=== PATIENT | male | born 1960 | race Caucasian/White ===

== ENCOUNTER 2018-11-13 13:06 | Inpatient (IN) | payer BC, OTHER ==
[~2018-11-13] VITALS: Ht 167.6 cm; Wt 100.9 kg
[2018-11-13] MEDS ORDERED: IV NORMAL SALINE 1000ML BAG 1,000 ML IV SCH (13:18)
[2018-11-13] MEDS ORDERED: ACETAMINOPHEN 500 MG TABLET PO ONE (13:30)
[2018-11-13] MEDS ORDERED: IPRATRPIUM/ALBUTEROL 0.5/2.5MG 3 ML NEBU. NEB ONE (13:30)
[2018-11-13] MEDS ORDERED: methylPREDNISolone SOD SUCC PF 125 MG/2 ML VIAL. IV ONE (13:30)
[2018-11-13 13:39] LABS: BASE EXCESS ABG 3 mmol/L (-3-3); CORRECTED PCO2 ABG 44 mmHg; CORRECTED PH ABG 7.42; CORRECTED PO2 ABG 114 mmHg; HCO3 ABG 27 mmol/L (21-28); PCO2 ABG 39 mmHg (35-46); PO2 ABG 98 mmHg (75-108); SAT O2 ABG 97 % (92-99)
[2018-11-13 13:41] LABS: FIO2 ABG 100% NRB
[2018-11-13 13:55] LABS: BASO # 0.1 x10^3/uL (0.0-0.2); BASO % 0 % (0-3); EOS % 0 % (0-3); HEMATOCRIT 41.2 % (39.0-53.0); HEMOGLOBIN 14.1 g/dL (13.0-17.5); LYMPH # 1.2 x10^3/uL (1.0-4.8); LYMPH % 7 % (24-48); MEAN CORPUSCULAR HEMOGLOBIN 33 pg (25-35); MEAN CORPUSCULAR HGB CONC 34 g/dL (31-37); MEAN CORPUSCULAR VOLUME 97 fL (79-100); MONO # 1.9 x10^3/uL (0.0-1.1); MONO % 10 % (0-9); NEUT # 15.9 x10^3uL (1.8-7.7); NEUT % 83 % (31-73); PLATELET COUNT 174 x10^3/uL (140-400); RED BLOOD COUNT 4.26 x10^6/uL (4.30-5.70); RED CELL DISTRIBUTION WIDTH 13.6 % (11.5-14.5); WHITE BLOOD COUNT 19.1 x10^3/uL (4.0-11.0)
--- NOTE | 2018-11-13 14:01 | RAD ---
Examination: PORTABLE CHEST 1V History: SOA, FEVER Comparison/Correlation: None Findings: Portable frontal view chest was obtained. Heart size is borderline and this may be technique related. Patchy infiltrate involving the left lung base is noted obscuring the left heart border. No definite pleural effusion. No pneumothorax. Pulmonary vasculature is within the upper limit of normal. Impression: Left basilar patchy infiltrate. Interval follow-up two-view chest x-ray exam to assess resolution is recommended. Electronically signed by: Celestine Collier MD (11/13/2018 1:59 PM) [facility]
[2018-11-13] MEDS ORDERED: VANCOMYCIN 1.25 GM in IV NORMAL SALINE 250ML 250 ML IV ONE (14:15)
[2018-11-13] MEDS ORDERED: cefTRIAXone IV Push 1 GM VIAL. IVP ONE (14:15)
[2018-11-13] MEDS ORDERED: VANCOMYCIN 2 GM in IV NORMAL SALINE 500ML BAG 500 ML IV ONE (14:30)
[2018-11-13 14:54] LABS: % BANDS 23 % (0-9); % LYMPHS 6 % (24-48); % MONOS 6 % (0-10); % SEGS 65 % (35-66); PLT ESTIMATE ADEQUATE (ADEQUATE)
--- NOTE | 2018-11-13 14:59 | PHYS DOC ---
Past Medical History Past Medical History: Hypertension Additional Past Surgical Histo: L ANKLE, PYLORIC VALVE Additional Information: PACK A DAY Alcohol Use: Occasionally Drug Use: None Adult General Chief Complaint Chief Complaint: SHORTNESS OF BREATH HPI HPI Patient is a 57 year old male who presents with complaining of shortness of breath and cough. Patient complaining of productive cough with yellow sputum for the last 3 days with shortness of breath that getting more constant and worse. Patient had fever since yesterday with nasal congestion, sore throat, headache and body ache. Patient had sick contacts at home. Patient was seen at his primary care physician office and had O2 sat of low 70s that improved with 2 L of oxygen to 90s and negative influenza test. Patient refused to come to the hospital by EMS and Dr. Acosta called ER and gave a report about the patient and needs for fast assessment and starting oxygen. Patient currently smoking one pack a day had history of COPD and CHF. Review of Systems Review of Systems Constitutional: Reports fever and chills Eyes: Denies change in visual acuity, redness, or eye pain [] HENT: Reports nasal congestion and sore throat Respiratory: Reports cough and shortness of breath Cardiovascular: No additional information not addressed in HPI [] GI: Denies abdominal pain, nausea, vomiting, bloody stools or diarrhea [] : Denies dysuria or hematuria [] Musculoskeletal: Denies back pain or joint pain [] Integument: Denies rash or skin lesions [] Neurologic: Denies headache, focal weakness or sensory changes [] Endocrine: Denies polyuria or polydipsia [] All other systems were reviewed and found to be within normal limits, except as documented in this note. Current Medications Current Medications Current Medications Medications (Trade) Dose Ordered Sig/Zack Start Time Stop Time Status Last Admin Dose Admin Acetaminophen (Tylenol) 1,000 mg 1X ONCE 11/13/18 13:30 11/13/18 13:31 DC 11/13/18 13:30 1,000 MG Albuterol/ Ipratropium (Duoneb) 3 ml 1X ONCE 11/13/18 13:30 11/13/18 13:31 DC 11/13/18 13:26 3 ML Methylprednisolone Sodium Succinate (SOLU-Medrol 125MG VIAL) 125 mg 1X ONCE 11/13/18 13:30 11/13/18 13:31 DC 11/13/18 13:27 125 MG Sodium Chloride 1,000 ml @ 1,000 mls/hr Q1H 11/13/18 13:18 11/13/18 14:17 DC 11/13/18 13:29 1,000 MLS/HR Allergies Allergies Allergies Coded Allergies Type Severity Reaction Last Updated Verified Penicillins Allergy Intermediate HIVES 11/13/18 Yes Physical Exam Physical Exam Constitutional: Well developed, well nourished, moderate distress, non-toxic appearance, temperature of 103. [] HENT: Normocephalic, atraumatic, oropharynx dry, no oral exudates, nose normal. [] Eyes: PERRLA, EOMI, conjunctiva normal, no discharge. [] Neck: Normal range of motion, no tenderness, supple, no stridor. [] Cardiovascular:Heart rate regular rhythm, no murmur [] Lungs & Thorax: Moderate respiratory distress with O2 sat of low 80s at arrival to ER, bilateral rhonchi and wheezing and rales, Abdomen: Bowel sounds normal, soft, no tenderness, no masses, no pulsatile masses. [] Skin: Warm, dry, no erythema, no rash. [] Back: No tenderness, no CVA tenderness. [] Extremities: No tenderness, no cyanosis, no clubbing, ROM intact, bilateral lower extremity 1+ edema. [] Neurologic: Alert and oriented X 3, normal motor function, normal sensory function, no focal deficits noted. [] Psychologic: Affect normal, judgement normal, mood normal. [] Current Patient Data Vital Signs Vital Signs Date Time Temp Pulse Resp B/P (MAP) Pulse Ox O2 Delivery O2 Flow Rate FiO2 11/13/18 13:30 68 24 120/60 (80) 99 Venturi Mask 15.0 11/13/18 13:12 103.0 103.0 Lab Values Laboratory Tests Test 11/13/18 13:20 11/13/18 13:25 White Blood Count 19.1 x10^3/uL (4.0-11.0) H Red Blood Count 4.26 x10^6/uL (4.30-5.70) L Hemoglobin 14.1 g/dL (13.0-17.5) Hematocrit 41.2 % (39.0-53.0) Mean Corpuscular Volume 97 fL (79-100) Mean Corpuscular Hemoglobin 33 pg (25-35) Mean Corpuscular Hemoglobin Concent 34 g/dL (31-37) Red Cell Distribution Width 13.6 % (11.5-14.5) Platelet Count 174 x10^3/uL (140-400) Neutrophils (%) (Auto) 83 % (31-73) H Lymphocytes (%) (Auto) 7 % (24-48) L Monocytes (%) (Auto) 10 % (0-9) H Eosinophils (%) (Auto) 0 % (0-3) Basophils (%) (Auto) 0 % (0-3) Neutrophils # (Auto) 15.9 x10^3uL (1.8-7.7) H Lymphocytes # (Auto) 1.2 x10^3/uL (1.0-4.8) Monocytes # (Auto) 1.9 x10^3/uL (0.0-1.1) H Eosinophils # (Auto) 0.0 x10^3/uL (0.0-0.7) Basophils # (Auto) 0.1 x10^3/uL (0.0-0.2) Segmented Neutrophils % 65 % (35-66) Band Neutrophils % 23 % (0-9) H Lymphocytes % 6 % (24-48) L Monocytes % 6 % (0-10) Platelet Estimate Adequate (ADEQUATE) Lactic Acid Level 1.8 mmol/L (0.4-2.0) O2 Saturation 97 % (92-99) Arterial Blood pH 7.46 (7.35-7.45) H Arterial Blood pH (Temp corrected) 7.42 Arterial Blood pCO2 at Patient Temp 39 mmHg (35-46) Arterial Blood pCO2 (Temp correct) 44 mmHg Arterial Blood pO2 at Patient Temp 98 mmHg (75-108) Arterial Blood pO2 (Temp corrected) 114 mmHg Arterial Blood HCO3 27 mmol/L (21-28) Arterial Blood Base Excess 3 mmol/L (-3-3) FiO2 100% nrb Laboratory Tests 11/13/18 13:20 EKG EKG EKG interpreted by me. EKG at 1328 showed normal sinus rhythm at rate of 67, normal AK and QT intervals, no acute ST and T-wave abnormalities. Radiology/Procedures Radiology/Procedures [facility] [address] [place] [address] IMAGING REPORT Signed PATIENT: MIRIAM BARTON ACCOUNT: [id number] : 1960 LOCATION: ER AGE: 57 SEX: M EXAM STATUS: REG ER ORD. PHYSICIAN: NEWTON HALE MD REASON: shortness of breath and fever PROCEDURE: PORTABLE CHEST 1V Examination: PORTABLE CHEST 1V History: SOA, FEVER Comparison/Correlation: None Findings: Portable frontal view chest was obtained. Heart size is borderline and this may be technique related. Patchy infiltrate involving the left lung base is noted obscuring the left heart border. No definite pleural effusion. No pneumothorax. Pulmonary vasculature is within the upper limit of normal. Impression: Left basilar patchy infiltrate. Interval follow-up two-view chest x-ray exam to assess resolution is recommended. Electronically signed by: Celestine Ramírez MD (11/13/2018 1:59 PM) [facility] DICTATED and SIGNED BY: CELESTINE RAMÍREZ MD DATE: 11/13/18 7977 Course & Med Decision Making Course & Med Decision Making Pertinent Labs and Imaging studies reviewed. (See chart for details) Evaluation of patient in ER showed 57-year-old male patient sent from primary care physician office because of fever and respiratory distress and hypoxia with refusing EMS transfer. Patient had acute respiratory distress with temperature of 120 and O2 sat of low 80s at arrival to ER. Patient treated with nonrebreather mental O2 sat to 97%. Patient treated with IV fluid, DuoNeb and Solu-Medrol. Blood culture and lactic acid was obtained and antibiotic was started. X-ray showed left lower lobe infiltration. Lactic acid was 1.8. White count was 19,000.Patient requiring admission for further evaluation and treatment. Discussed with who is in agreement with admission. Discussed findings and plan with patient and family, who acknowledge understanding and agreement. Dragon Disclaimer Dragon Disclaimer This electronic medical record was generated, in whole or in part, using a voice recognition dictation system. Departure Departure Impression: Primary Impression: Acute respiratory distress Additional Impressions: CAP (community acquired pneumonia) SIRS (systemic inflammatory response syndrome) COPD (chronic obstructive pulmonary disease) Hyponatremia Hypokalemia Hypochloremia Disposition: ADMITTED INPATIENT (at 1336) Admitting Physician: Edward Acosta (accepted admission at 1455) Condition: GUARDED Referrals: EDWARD ACOSTA MD (PCP) Critical Care Time Critical care time was 70 minutes exclusive of procedures. Problem Qualifiers Additional Impressions: CAP (community acquired pneumonia) Laterality: left Lung location: lower lobe of lung Qualified Codes: J18.1 - Lobar pneumonia, unspecified organism COPD (chronic obstructive pulmonary disease) COPD type: COPD with acute exacerbation Qualified Codes: J44.1 - Chronic obstructive pulmonary disease with (acute) exacerbation NEWTON HALE MD Nov 13, 2018 14:59
[2018-11-13] MEDS: IV NORMAL SALINE 1000ML BAG 1,000 ML IV SCH ×2 (15:15→20:59)
[2018-11-13 15:20] LABS: CALCIUM 8.2 mg/dL (8.5-10.1); GFR 76.7; POTASSIUM 3.3 mmol/L (3.5-5.1)
--- NOTE | 2018-11-13 15:25 | EKG ---
[facility] [address] [place] [address] Test Date: 2018-11-13 Test Time: 13:28:20 Pat Name: MIRIAM BARTON Department: Room: 646 1 Gender: M De Alcoholizer: : 1960 Requested By: NEWTON HALE Order Number: [id number] Reading MD: Basil Pitt MD Measurements Intervals [place] Rate: 67 P: 30 WA: 154 QRS: 34 QRSD: 94 T: 40 QT: 400 QTc: 426 Interpretive Statements SINUS RHYTHM Electronically Signed On 11-25-2018 9:59:14 CDT by Basil Pitt MD
[2018-11-13 15:27] LABS: ALBUMIN 3.2 g/dL (3.4-5.0); TOTAL PROTEIN 6.3 g/dL (6.4-8.2)
--- NOTE | 2018-11-13 16:30 | NUR ---
ER patient assigned bed per nursing asbestos cement sheet supervisor request, upon review of records for admission, admit order stated level of care for CV/ICU. This nurse spoke to Dr. Acosta to clarify patient placement prior to admission to unit [address] [place] [address]. Reviewed vital signs and ER notes with Dr. Acosta. Dr. Acosta ordered patient to be admitted to CVC level of care or ICU if condition worsens. Dr. Acosta accepted patient care as admitting doctor when patient was to be admitted to CVC and stated he had not been notified that patient condition had improved to a point where patient could be admitted to med/tele unit and did not want patient on med/tele floor at this time. ER asbestos cement sheet supervisor was notified and nursing asbestos cement sheet supervisor notified, orders updated and bed requested for CVC level of care.
[2018-11-13 19:10] VITALS: BP 112/57
[2018-11-13 19:18] LABS: INFLUENZA A PATIENT NEGATIVE (NEGATIVE); INFLUENZA B PATIENT NEGATIVE (NEGATIVE)
[2018-11-13] MEDS ORDERED: AZEL137S3 INH (20:10)
[2018-11-13] MEDS ORDERED: B12/1TAB3 PO (20:10)
[2018-11-13] MEDS ORDERED: MONT10TA9 PO (20:10)
[2018-11-13] MEDS ORDERED: ATEN50TA PO (20:10)
[2018-11-13] MEDS ORDERED: HYDR25TA10 PO (20:10)
[2018-11-13] MEDS ORDERED: POTA20TA4 PO (20:10)
[2018-11-13] MEDS ORDERED: PROAIR RESPICL90 MCG INH (20:10)
[2018-11-13] MEDS ORDERED: MAGN400T22 PO (20:10)
[2018-11-13] MEDS ORDERED: MULT-245 PO (20:10)
[2018-11-13] MEDS ORDERED: FLUT1AER2 INH (20:10)
[2018-11-13] MEDS ORDERED: AMLO1CAP10 PO (20:10)
[2018-11-13] MEDS ORDERED: DOXA4TAB3 PO (20:10)
[2018-11-13] MEDS ORDERED: FEXO180T81 PO (20:10)
[2018-11-13] MEDS ORDERED: MAGNESIUM SULFATE 2GM 50 ML IV ONE (21:00)
[2018-11-13] MEDS: methylPREDNISolone SOD SUCC PF 125 MG/2 ML VIAL. IV SCH (21:00)
[2018-11-13] MEDS ORDERED: NICOTINE 21MG PATCH. TD ONE (21:00)
[2018-11-13 23:16] VITALS: BP 114/58
[2018-11-14] VITALS (7 sets, daily range): BP systolic 125–151; BP diastolic 69–81
[2018-11-14 03:57] LABS: BASO % 0 % (0-3); EOS % 0 % (0-3); HEMATOCRIT 44.8 % (39.0-53.0); HEMOGLOBIN 15.1 g/dL (13.0-17.5); LYMPH # 0.9 x10^3/uL (1.0-4.8); LYMPH % 5 % (24-48); MEAN CORPUSCULAR HEMOGLOBIN 33 pg (25-35); MEAN CORPUSCULAR HGB CONC 34 g/dL (31-37); MEAN CORPUSCULAR VOLUME 98 fL (79-100); MONO # 0.5 x10^3/uL (0.0-1.1); MONO % 3 % (0-9); NEUT # 15.4 x10^3uL (1.8-7.7); NEUT % 92 % (31-73); PLATELET COUNT 155 x10^3/uL (140-400); RED BLOOD COUNT 4.58 x10^6/uL (4.30-5.70); RED CELL DISTRIBUTION WIDTH 13.5 % (11.5-14.5); WHITE BLOOD COUNT 16.9 x10^3/uL (4.0-11.0)
[2018-11-14] MEDS: IV NORMAL SALINE 1000ML BAG 1,000 ML IV SCH (04:00)
[2018-11-14 04:55] LABS: ALBUMIN 3.1 g/dL (3.4-5.0); ALBUMIN/GLOBULIN RATIO 0.7 (1.0-1.7); CALCIUM 8.3 mg/dL (8.5-10.1); CREATININE 0.9 mg/dL (0.7-1.3); GFR 86.7; POTASSIUM 3.7 mmol/L (3.5-5.1); TOTAL BILIRUBIN 0.5 mg/dL (0.2-1.0); TOTAL PROTEIN 7.3 g/dL (6.4-8.2)
[2018-11-14] MEDS: methylPREDNISolone SOD SUCC PF 125 MG/2 ML VIAL. IV SCH ×3 (05:37→21:24)
--- NOTE | 2018-11-14 08:41 | PDOC ---
Infectious Disease Note Vital Sign Vital Signs Vital Signs Date Time Temp Pulse Resp B/P (MAP) Pulse Ox O2 Delivery O2 Flow Rate FiO2 11/14/18 08:14 Nasal Cannula 5.0 11/14/18 07:31 96 11/14/18 06:27 97.6 60 19 125/69 (87) 97.6 Labs Lab Laboratory Tests Test 11/13/18 13:20 11/13/18 13:25 11/13/18 14:10 11/13/18 18:20 White Blood Count 19.1 x10^3/uL (4.0-11.0) Red Blood Count 4.26 x10^6/uL (4.30-5.70) Hemoglobin 14.1 g/dL (13.0-17.5) Hematocrit 41.2 % (39.0-53.0) Mean Corpuscular Volume 97 fL (79-100) Mean Corpuscular Hemoglobin 33 pg (25-35) Mean Corpuscular Hemoglobin Concent 34 g/dL (31-37) Red Cell Distribution Width 13.6 % (11.5-14.5) Platelet Count 174 x10^3/uL (140-400) Neutrophils (%) (Auto) 83 % (31-73) Lymphocytes (%) (Auto) 7 % (24-48) Monocytes (%) (Auto) 10 % (0-9) Eosinophils (%) (Auto) 0 % (0-3) Basophils (%) (Auto) 0 % (0-3) Neutrophils # (Auto) 15.9 x10^3uL (1.8-7.7) Lymphocytes # (Auto) 1.2 x10^3/uL (1.0-4.8) Monocytes # (Auto) 1.9 x10^3/uL (0.0-1.1) Eosinophils # (Auto) 0.0 x10^3/uL (0.0-0.7) Basophils # (Auto) 0.1 x10^3/uL (0.0-0.2) Segmented Neutrophils % 65 % (35-66) Band Neutrophils % 23 % (0-9) Lymphocytes % 6 % (24-48) Monocytes % 6 % (0-10) Platelet Estimate Adequate (ADEQUATE) Lactic Acid Level 1.8 mmol/L (0.4-2.0) O2 Saturation 97 % (92-99) Arterial Blood pH 7.46 (7.35-7.45) Arterial Blood pH (Temp corrected) 7.42 Arterial Blood pCO2 at Patient Temp 39 mmHg (35-46) Arterial Blood pCO2 (Temp correct) 44 mmHg Arterial Blood pO2 at Patient Temp 98 mmHg (75-108) Arterial Blood pO2 (Temp corrected) 114 mmHg Arterial Blood HCO3 27 mmol/L (21-28) Arterial Blood Base Excess 3 mmol/L (-3-3) FiO2 100% nrb Sodium Level 129 mmol/L (136-145) Potassium Level 3.3 mmol/L (3.5-5.1) Chloride Level 91 mmol/L (98-107) Carbon Dioxide Level 29 mmol/L (21-32) Anion Gap 9 (6-14) Blood Urea Nitrogen 11 mg/dL (8-26) Creatinine 1.0 mg/dL (0.7-1.3) Estimated GFR (Cockcroft-Gault) 76.7 BUN/Creatinine Ratio 11 (6-20) Glucose Level 150 mg/dL (70-99) Calcium Level 8.2 mg/dL (8.5-10.1) Total Bilirubin 1.0 mg/dL (0.2-1.0) Aspartate Amino Transf (AST/SGOT) 45 U/L (15-37) Alanine Aminotransferase (ALT/SGPT) 54 U/L (16-63) Alkaline Phosphatase 66 U/L (46-116) Creatine Kinase 246 U/L (39-308) Troponin I Quantitative < 0.017 ng/mL (0.000-0.055) SC-Hvt-I-Type Natriuretic Peptide 825 pg/mL (0-124) Total Protein 6.3 g/dL (6.4-8.2) Albumin 3.2 g/dL (3.4-5.0) Albumin/Globulin Ratio 1.0 (1.0-1.7) Influenza Type A Antigen Negative (NEGATIVE) Influenza Type B Antigen Negative (NEGATIVE) Test 11/13/18 19:30 11/14/18 03:15 Lactic Acid Level 1.3 mmol/L (0.4-2.0) Magnesium Level 1.6 mg/dL (1.8-2.4) 2.3 mg/dL (1.8-2.4) White Blood Count 16.9 x10^3/uL (4.0-11.0) Red Blood Count 4.58 x10^6/uL (4.30-5.70) Hemoglobin 15.1 g/dL (13.0-17.5) Hematocrit 44.8 % (39.0-53.0) Mean Corpuscular Volume 98 fL (79-100) Mean Corpuscular Hemoglobin 33 pg (25-35) Mean Corpuscular Hemoglobin Concent 34 g/dL (31-37) Red Cell Distribution Width 13.5 % (11.5-14.5) Platelet Count 155 x10^3/uL (140-400) Neutrophils (%) (Auto) 92 % (31-73) Lymphocytes (%) (Auto) 5 % (24-48) Monocytes (%) (Auto) 3 % (0-9) Eosinophils (%) (Auto) 0 % (0-3) Basophils (%) (Auto) 0 % (0-3) Neutrophils # (Auto) 15.4 x10^3uL (1.8-7.7) Lymphocytes # (Auto) 0.9 x10^3/uL (1.0-4.8) Monocytes # (Auto) 0.5 x10^3/uL (0.0-1.1) Eosinophils # (Auto) 0.0 x10^3/uL (0.0-0.7) Basophils # (Auto) 0.0 x10^3/uL (0.0-0.2) Sodium Level 135 mmol/L (136-145) Potassium Level 3.7 mmol/L (3.5-5.1) Chloride Level 98 mmol/L (98-107) Carbon Dioxide Level 28 mmol/L (21-32) Anion Gap 9 (6-14) Blood Urea Nitrogen 13 mg/dL (8-26) Creatinine 0.9 mg/dL (0.7-1.3) Estimated GFR (Cockcroft-Gault) 86.7 BUN/Creatinine Ratio 14 (6-20) Glucose Level 200 mg/dL (70-99) Calcium Level 8.3 mg/dL (8.5-10.1) Total Bilirubin 0.5 mg/dL (0.2-1.0) Aspartate Amino Transf (AST/SGOT) 39 U/L (15-37) Alanine Aminotransferase (ALT/SGPT) 52 U/L (16-63) Alkaline Phosphatase 71 U/L (46-116) Total Protein 7.3 g/dL (6.4-8.2) Albumin 3.1 g/dL (3.4-5.0) Albumin/Globulin Ratio 0.7 (1.0-1.7) Objective Assessment Fever Leukocytosis Pneumonia COPD HTN Obesity Smoking Plan Plan of Care Rocephine and azithro supportive care adv to quit smoking adv to lose wt KAIA MANCILLA MD Nov 14, 2018 08:41
[2018-11-14] MEDS: AZITHROMYCIN 250 MG TABLET. PO SCH (08:49)
[2018-11-14] MEDS: NICOTINE 21MG PATCH. TD SCH (08:51)
[2018-11-14] MEDS ORDERED: IPRATRPIUM/ALBUTEROL 0.5/2.5MG 3 ML NEBU. NEB SCH (09:00)
--- NOTE | 2018-11-14 11:15 | PDOC ---
Provider Note Provider Note [id number] acute resp fail pneumonia ae copd see orders HERMES NICHOLS MD Nov 14, 2018 11:15
--- NOTE | 2018-11-14 11:38 | PDOC ---
Provider Note Provider Note Patient seen. History and Physical dictated. See dictation# [id number] EDWARD OATES MD Nov 14, 2018 11:38
[2018-11-14] MEDS: PANTOPRAZOLE 40 MG TABLET.DR. PO SCH (11:41)
[2018-11-14] MEDS: ENOXAPARIN 40 MG/0.4 ML SYRINGE. SQ SCH (11:42)
--- NOTE | 2018-11-14 11:55 | CONS ---
DATE OF CONSULTATION: 11/14/2018 REASON FOR CONSULTATION: I was asked to see this 57-year-old gentleman for acute respiratory failure. HISTORY OF PRESENT ILLNESS: He has history of [id number] smoking, continues to smoke about 1 pack per day. He has had increased shortness of breath, cough with yellow sputum production, fever, chills for the past few days. His oxygen saturation at his primary physician's office was in 70s. He was sent to the Emergency Room for further evaluation. He was placed on oxygen. He also has had wheezing. Denies gastroesophageal reflux symptoms. PAST MEDICAL HISTORY: COPD, hypertension. ALLERGIES: PENICILLINS. MEDICATIONS: Currently, he is on Rocephin, azithromycin, Solu-Medrol 80 mg IV q.8h., DuoNeb, nicotine patch. SOCIAL HISTORY: History of [id number] smoking, continues to smoke 1 pack per day. FAMILY HISTORY: There is no history of lung disease. REVIEW OF SYSTEMS: As mentioned as above. He snores and has excessive daytime sleepiness. He has not had a sleep study, also it was recommended. Other systems otherwise negative. PHYSICAL EXAMINATION: GENERAL: An obese gentleman. VITAL SIGNS: His O2 saturation on 5 liters of oxygen is 95%, respiratory rate 20, heart rate 86, blood pressure 145/75, temperature 97.6. HEENT: Normocephalic, atraumatic. Pupils equal, round, reactive to light. Throat: There is shallow oropharynx, poor dentition. Nose is clear. NECK: There is no lymphadenopathy or thyromegaly. CARDIOVASCULAR: Regular rate and rhythm. PMI is nondisplaced. CHEST: Inspection is normal. LUNGS: There is bilateral end expiratory wheezing, left basilar crackles, dullness at the left base. ABDOMEN: Soft and obese. Bowel sounds are good. There is no mass. EXTREMITIES: There is edema. LYMPHATICS: There is no lymphadenopathy. SKIN: Chronic changes. NEUROLOGIC: Alert and oriented x 3. LABORATORY DATA: I reviewed the following lab data: Chest x-ray shows cardiomegaly, increased vascular marking, left lower lobe infiltrate. WBC 16.9, hemoglobin 15.1, platelets 155. Influenza A and B negative. ABG: pH 7.42, pCO2 39, pO2 44. Sodium 135, potassium 3.7, chloride 98, CO2 28, glucose 200, BUN 13, creatinine 0.9. Troponin less than 0.017. BNP 825. Lactic acid 1.3. IMPRESSION: 1. Acute respiratory failure secondary to pneumonia, acute exacerbation of chronic obstructive pulmonary disease, cannot rule out congestive heart failure versus others. 2. Abnormal chest x-ray. 3. Pneumonia. 4. Acute exacerbation of chronic obstructive pulmonary disease. 5. Obesity, snoring and excessive daytime sleepiness, probable obstructive sleep apnea-hypopnea syndrome. 6. Hypertension. 7. Tobacco habituation. PLAN AND RECOMMENDATIONS: 1. I had a long discussion with him regarding the smoking cessation. I have advised him to stop smoking forever. 2. Continue steroids. 3. Continue Rocephin and azithromycin. 4. I will order echocardiogram. His BNP is elevated and he has lower extremity edema. 5. Titrate FiO2 to keep O2 saturation 92%. 6. Bronchodilator. 7. Start Lovenox for DVT prophylaxis. 8. Start Protonix for stress ulcer prophylaxis. 9. The findings and recommendations were discussed with the patient and RN. I have answered all of the patient's questions. He understood and agreed to proceed with the plan. I have answered all of his questions. 10. I have discussed obstructive sleep apnea-hypopnea syndrome, the importance of diagnosis and treatment, if untreated increased cardiovascular and FAMILY RESOURCE MANAGEMENT SPECIALIST morbidity or mortality. I do recommend a sleep study as an outpatient 11. A 6-minute walk at the time of discharge. Thank you very much for allowing me to participate in care of this very nice gentleman. HERMES NICHOLS M.D. : PREMA/laz JOB#: [id number] / [id number]
[2018-11-14] MEDS: IPRATRPIUM/ALBUTEROL 0.5/2.5MG 3 ML NEBU. NEB SCH ×3 (12:00→19:54)
--- NOTE | 2018-11-14 12:09 | HP ---
ADMIT DATE: 11/14/2018 HISTORY OF PRESENT ILLNESS: This 57-year-old male who has a history of COPD and chronic smoking, started having chills, fatigue, fever, productive cough and purulent sputum and wheezing for the last 3 days. In the office, the patient was noted to have temperature of 102.5 degree Fahrenheit. O2 sats were 67% on room air and then increased to 79% on recheck. The patient was then sent to the Emergency Room, was noted to have left-sided pneumonia with acute respiratory failure and was admitted for further evaluation and management. REVIEW OF SYSTEMS: Systems review as noted earlier. The patient has body aches, fatigue and dyspnea. Denies any chest pains or palpitations. Feels tired. No complaints of dysuria, diarrhea or constipation. Other systems reviewed and are negative. PAST MEDICAL HISTORY: The patient is known to have history of hypertension, allergic rhinitis, COPD and sleep apnea. PAST SURGICAL HISTORY: The patient had open reduction and internal fixation of the right ankle because of right ankle fracture in 2010 and history of tonsillectomy. ALLERGIES: THE PATIENT IS ALLERGIC TO PENICILLIN. MEDICATIONS: Reviewed and reconciled. FAMILY HISTORY: Father had hypertension and borderline diabetes. SOCIAL HISTORY: The patient is a heavy tobacco smoker, used to drink, has history of 6-pack beer consumption daily. No history of drug abuse. PHYSICAL EXAMINATION: VITAL SIGNS: Temperature 97.6, pulse 86 per minute and blood pressure 145/75 mmHg. O2 sats are 95% on oxygen by nasal cannula 5 liters per minute. Initially, the patient was treated with BiPAP. Temperature in the Emergency Room was 103 degree Fahrenheit. GENERAL: The patient is alert, oriented x 3 and in less distress today. EYES: Pupils reacting to light. Conjunctivae pale. Sclerae muddy. HENT: Unremarkable, except for congested throat. NECK: Supple. JVP normal. No thyromegaly. Trachea midline. LUNGS: Bilateral wheezing, but increased air entry compared to yesterday. CARDIOVASCULAR SYSTEM: S1, S2 regular. ABDOMEN: Soft, nontender. No guarding, no rigidity. Bowel sounds present. EXTREMITIES: No edema. CENTRAL NERVOUS SYSTEM: Alert and oriented. LABORATORY DATA: Influenza screen is negative. WBC count was 19.1 yesterday, 16.9 today; hemoglobin 14.1. Sodium was 129 yesterday, 135 today. Potassium 3.3 yesterday; potassium is 3.7 today. Glucose 150. Lactic acid 1.8. AST 45, ALT 54. BNP was 825. Albumin 3.2. IMPRESSION: 1. Acute hypoxic respiratory failure. 2. Pneumonia. 3. Acute exacerbation of chronic obstructive pulmonary disease. 4. Hypertension. 5. Allergic rhinitis. PLAN: The patient is strongly advised to stop smoking, started on nicotine patch. Consult Dr. Copeland for Pulmonary evaluation and management. Consult Dr. Jason Martinez for Infectious Disease evaluation and management. The patient has been started on IV Rocephin and Zithromax, IV steroids, bronchodilators and oxygen. For details, please review the orders. EDWARD OATES MD DR: ARTHUR/laz JOB#: [id number] / [id number]
--- NOTE | 2018-11-14 13:21 | NUR ---
SS following for discharge planning. SS reviewed pt chart. Pt is from home with spouse and is currently requiring oxygen. No discharge needs noted at this time. SS will continue to follow for discharge planning.
--- NOTE | 2018-11-14 13:58 | CARD ---
MR#: [id number] Date of Study: 11/14/2018 Ordering Physician: HERMES NICHOLS, Referring Physician: EDWARD OATES Tech: Vicki Lopez SPARKLE APPROVED REPORT EXAM: Two-dimensional and M-mode echocardiogram with Doppler and color Doppler. Other Information Quality : Technically LimitedHR: 80bpm Rhythm : NSRTechnically limited study due to body habitus and smoking. INDICATION Shortness of breath 2D DIMENSIONS RVDd3.3 (2.9-3.5cm)Left Atrium(2D)4.3 (1.6-4.0cm) IVSd1.4 (0.7-1.1cm)Aortic Root(2D)3.2 (2.0-3.7cm) LVDd5.1 (3.9-5.9cm)LVOT Diameter2.3 (1.8-2.4cm) PWd1.2 (0.7-1.1cm)LVDs3.6 (2.5-4.0cm) FS (%) 29.5 %SV68.1 ml LVEF(%)56.2 (>50%) M-Mode DIMENSIONS Left Atrium(MM)4.07 (2.5-4.0cm)Aortic Root3.43 (2.2-3.7cm) Aortic Valve AoV Peak Robb.280.8cm/sAoV VTI55.0cm AO Peak GR.31.5mmHgLVOT Peak Robb.106.4cm/s AO Mean GR.18mmHgAVA (VMAX)1.51cm2 JUANITA (VTI)1.70it8PF P 1/2 Musn375ny Mitral Valve MV E Inlnuldm925.5cm/sMV E Peak Gr.6mmHg MV DECEL [id number] A Rpqnotel816.8cm/s MV E Mean Gr.3mmHgE/A Ratio1.4 MV A Tzcdtyzm791tj Pulmonary Valve PV Peak Biafjfxj956.3cm/s Tricuspid Valve TR P. Iorfmxqt644tj/sRAP GVBFPNLU1ldSz TR Peak Gr.02vsRhEKOF31rbId LEFT VENTRICLE The left ventricle is normal size. There is mild concentric left ventricular hypertrophy. The left ve ntricular systolic function is normal. The Ejection Fraction is 65%. There is normal LV segmental wal l motion. Transmitral Doppler flow pattern is Grade II-pseudonormal filling dynamics. RIGHT VENTRICLE The right ventricle is normal size. There is normal right ventricular wall thickness. The right ventr icular systolic function is normal. ATRIA The left atrium is mildly dilated. The right atrium is mildly dilated. The interatrial septum is inta ct with no evidence for an atrial septal defect or patent foramen ovale as noted on 2-D or Doppler im aging. AORTIC VALVE The aortic valve is normal in structure and function. The aortic valve is trileaflet. Doppler and Col or Flow revealed moderate aortic regurgitation. There are increased velocties across the aortic valve but visually is opens well. MITRAL VALVE The mitral valve is normal in structure and function. There is no evidence of mitral valve prolapse. There is no mitral valve stenosis. Doppler and Color-flow revealed trace mitral regurgitation. TRICUSPID VALVE The tricuspid valve is normal in structure and function. Doppler and Color Flow revealed mild tricusp id regurgitation. There is severe pulmonary hypertension. The PA pressure was estimated at 79 mmHg. T here is no tricuspid valve prolapse or vegetation. There is no tricuspid valve stenosis. PULMONIC VALVE The pulmonic valve is not well visualized. GREAT VESSELS The aortic root is normal in size. The ascending aorta is normal in size. The IVC is dilated and gabo apses >50% with inspiration. PERICARDIAL EFFUSION There is no evidence of significant pericardial effusion. Critical Notification Critical Value: No <Conclusion> The left ventricular systolic function is normal. The Ejection Fraction is 65%. There is normal LV segmental wall motion. The left atrium is mildly dilated. Moderate aortic regurgitation. Trace mitral regurgitation. Mild tricuspid regurgitation. There is severe pulmonary hypertension. The PA pressure was estimated at 79 mmHg. There is no evidence of significant pericardial effusion. Signed by : Danilo Paula, Electronically Approved : 11/14/2018 13:58:01
[2018-11-14] MEDS: POTASSIUM CHLORIDE 20 MEQ TABLET.ER. PO SCH (16:20)
[2018-11-14] MEDS: cefTRIAXone IV Push 1 GM VIAL. IVP SCH (16:20)
[2018-11-14] MEDS: BUDESONIDE 0.5 MG/2 ML NEBU. NEB SCH (19:54)
[2018-11-14] MEDS: LACTOBACILLUS RHAMNOSUS GG 1 CAPSULE. PO SCH (21:13)
[2018-11-14] MEDS: MAGNESIUM OXIDE 400 MG TABLET PO SCH (21:13)
[2018-11-14] MEDS: MONTELUKAST SODIUM 10 MG TABLET. PO SCH (21:13)
[2018-11-14] MEDS: ATENOLOL 50 MG TABLET. PO SCH (21:14)
[2018-11-14] MEDS: LISINOPRIL 20 MG TABLET PO SCH (21:14)
--- NOTE | 2018-11-15 01:23 | CONS ---
DATE OF CONSULTATION: 11/14/2018 REQUESTING PHYSICIAN: Robin Acosta M.D. REASON FOR CONSULTATION: Fever and pneumonia. HISTORY OF PRESENT ILLNESS: This is a 57-year-old gentleman with a history of hypertension and obesity, who presented with about 3-4 days history of cough, sore throat, shortness of breath, not feeling well, fever and the patient states his stepson and the both had similar symptoms before and then, he got it. Denies any nausea or vomiting. Denies any diarrhea. Denies any chest pain, abdominal pain, urinary symptoms, bowel symptoms or headaches. PAST MEDICAL HISTORY: Positive for hypertension, COPD and obesity. The patient has had ankle fracture surgery done in the past. Does have hearing problem. SOCIAL HISTORY: Positive for smoking. Negative for alcohol use or drug use. ALLERGIES: Listed as allergic to PENICILLIN. He states he had problem with amoxicillin was growing up, although admits to have taken Augmentin without any problem. REVIEW OF SYSTEMS: As per HPI, all other systems reviewed are negative. CURRENT MEDICATIONS: Reviewed. PHYSICAL EXAMINATION: GENERAL: Alert, oriented gentleman, not in distress. VITAL SIGNS: Stable. The patient did have a T-max of 103. HEENT: NAD. NECK: Supple. No JVP. No lymphadenopathy. LUNGS: Clear. HEART: S1 and S2 regular. ABDOMEN: Benign. EXTREMITIES: No edema or cyanosis. SKIN: Unremarkable. NEUROLOGICAL: The patient is neurologically intact. LABORATORY DATA: White count is 16,000 down from 19,000. BUN and creatinine is normal. Lactic acid was normal. Liver functions are normal. His influenza screen was negative. RADIOLOGICAL DATA: Chest x-ray showed left basilar infiltrate. IMPRESSION: 1. Fever. 2. Leukocytosis. 3. Community-acquired pneumonia. 4. Hypertension. 5. Obesity. 6. Tobaccoism. RECOMMENDATIONS: Recommend Rocephin and azithromycin as I started. Follow cultures. Supportive care, steroids strongly advised to quit smoking as well as to lose weight. Thank you very much, Dr. Acosta, for giving me the opportunity to participate in this patient's care. KAIA MANCILLA MD DR: J CARLOS/laz JOB#: [id number] / [id number]
[2018-11-15 03:29] VITALS: BP 124/59
[2018-11-15] MEDS: methylPREDNISolone SOD SUCC PF 125 MG/2 ML VIAL. IV SCH (06:01)
[2018-11-15 07:00] VITALS: BP 144/72
--- NOTE | 2018-11-15 08:01 | PDOC ---
PULMONARY PROGRESS NOTES Subjective has sob, cough, on 02, no pain Vitals Vital Signs Date Time Temp Pulse Resp B/P (MAP) Pulse Ox O2 Delivery O2 Flow Rate FiO2 11/15/18 03:29 62 20 124/59 (80) 93 Nasal Cannula 4.0 11/14/18 22:25 98.0 98.0 ROS: No Nausea, No Chest Pain General: Alert HEENT: Other (nc at perrl shallow oropharynx. ) Lungs: Wheezing, Crackles Cardiovascular: S1, S2 Abdomen: Soft, Non-tender Neuro Exam: Alert Extremities: Other (+1 edema) Labs Laboratory Tests Test 11/13/18 13:20 11/13/18 13:25 11/13/18 14:10 11/13/18 18:20 White Blood Count 19.1 x10^3/uL (4.0-11.0) Red Blood Count 4.26 x10^6/uL (4.30-5.70) Hemoglobin 14.1 g/dL (13.0-17.5) Hematocrit 41.2 % (39.0-53.0) Mean Corpuscular Volume 97 fL (79-100) Mean Corpuscular Hemoglobin 33 pg (25-35) Mean Corpuscular Hemoglobin Concent 34 g/dL (31-37) Red Cell Distribution Width 13.6 % (11.5-14.5) Platelet Count 174 x10^3/uL (140-400) Neutrophils (%) (Auto) 83 % (31-73) Lymphocytes (%) (Auto) 7 % (24-48) Monocytes (%) (Auto) 10 % (0-9) Eosinophils (%) (Auto) 0 % (0-3) Basophils (%) (Auto) 0 % (0-3) Neutrophils # (Auto) 15.9 x10^3uL (1.8-7.7) Lymphocytes # (Auto) 1.2 x10^3/uL (1.0-4.8) Monocytes # (Auto) 1.9 x10^3/uL (0.0-1.1) Eosinophils # (Auto) 0.0 x10^3/uL (0.0-0.7) Basophils # (Auto) 0.1 x10^3/uL (0.0-0.2) Segmented Neutrophils % 65 % (35-66) Band Neutrophils % 23 % (0-9) Lymphocytes % 6 % (24-48) Monocytes % 6 % (0-10) Platelet Estimate Adequate (ADEQUATE) Lactic Acid Level 1.8 mmol/L (0.4-2.0) O2 Saturation 97 % (92-99) Arterial Blood pH 7.46 (7.35-7.45) Arterial Blood pH (Temp corrected) 7.42 Arterial Blood pCO2 at Patient Temp 39 mmHg (35-46) Arterial Blood pCO2 (Temp correct) 44 mmHg Arterial Blood pO2 at Patient Temp 98 mmHg (75-108) Arterial Blood pO2 (Temp corrected) 114 mmHg Arterial Blood HCO3 27 mmol/L (21-28) Arterial Blood Base Excess 3 mmol/L (-3-3) FiO2 100% nrb Sodium Level 129 mmol/L (136-145) Potassium Level 3.3 mmol/L (3.5-5.1) Chloride Level 91 mmol/L (98-107) Carbon Dioxide Level 29 mmol/L (21-32) Anion Gap 9 (6-14) Blood Urea Nitrogen 11 mg/dL (8-26) Creatinine 1.0 mg/dL (0.7-1.3) Estimated GFR (Cockcroft-Gault) 76.7 BUN/Creatinine Ratio 11 (6-20) Glucose Level 150 mg/dL (70-99) Calcium Level 8.2 mg/dL (8.5-10.1) Total Bilirubin 1.0 mg/dL (0.2-1.0) Aspartate Amino Transf (AST/SGOT) 45 U/L (15-37) Alanine Aminotransferase (ALT/SGPT) 54 U/L (16-63) Alkaline Phosphatase 66 U/L (46-116) Creatine Kinase 246 U/L (39-308) Troponin I Quantitative < 0.017 ng/mL (0.000-0.055) RZ-Gzw-N-Type Natriuretic Peptide 825 pg/mL (0-124) Total Protein 6.3 g/dL (6.4-8.2) Albumin 3.2 g/dL (3.4-5.0) Albumin/Globulin Ratio 1.0 (1.0-1.7) Influenza Type A Antigen Negative (NEGATIVE) Influenza Type B Antigen Negative (NEGATIVE) Test 11/13/18 19:30 11/14/18 03:15 Lactic Acid Level 1.3 mmol/L (0.4-2.0) Magnesium Level 1.6 mg/dL (1.8-2.4) 2.3 mg/dL (1.8-2.4) White Blood Count 16.9 x10^3/uL (4.0-11.0) Red Blood Count 4.58 x10^6/uL (4.30-5.70) Hemoglobin 15.1 g/dL (13.0-17.5) Hematocrit 44.8 % (39.0-53.0) Mean Corpuscular Volume 98 fL (79-100) Mean Corpuscular Hemoglobin 33 pg (25-35) Mean Corpuscular Hemoglobin Concent 34 g/dL (31-37) Red Cell Distribution Width 13.5 % (11.5-14.5) Platelet Count 155 x10^3/uL (140-400) Neutrophils (%) (Auto) 92 % (31-73) Lymphocytes (%) (Auto) 5 % (24-48) Monocytes (%) (Auto) 3 % (0-9) Eosinophils (%) (Auto) 0 % (0-3) Basophils (%) (Auto) 0 % (0-3) Neutrophils # (Auto) 15.4 x10^3uL (1.8-7.7) Lymphocytes # (Auto) 0.9 x10^3/uL (1.0-4.8) Monocytes # (Auto) 0.5 x10^3/uL (0.0-1.1) Eosinophils # (Auto) 0.0 x10^3/uL (0.0-0.7) Basophils # (Auto) 0.0 x10^3/uL (0.0-0.2) Sodium Level 135 mmol/L (136-145) Potassium Level 3.7 mmol/L (3.5-5.1) Chloride Level 98 mmol/L (98-107) Carbon Dioxide Level 28 mmol/L (21-32) Anion Gap 9 (6-14) Blood Urea Nitrogen 13 mg/dL (8-26) Creatinine 0.9 mg/dL (0.7-1.3) Estimated GFR (Cockcroft-Gault) 86.7 BUN/Creatinine Ratio 14 (6-20) Glucose Level 200 mg/dL (70-99) Calcium Level 8.3 mg/dL (8.5-10.1) Total Bilirubin 0.5 mg/dL (0.2-1.0) Aspartate Amino Transf (AST/SGOT) 39 U/L (15-37) Alanine Aminotransferase (ALT/SGPT) 52 U/L (16-63) Alkaline Phosphatase 71 U/L (46-116) Total Protein 7.3 g/dL (6.4-8.2) Albumin 3.1 g/dL (3.4-5.0) Albumin/Globulin Ratio 0.7 (1.0-1.7) Medications Active Scripts Medications Dose Route/Sig Max Daily Dose Days Date Category Folbic Rf Tablet (B12/Levomefolate Calcium/B-6) 1 Each Tablet 1 Each PO DAILY 11/13/18 Reported Multi Vitamin Daily (Multivitamin) 1 Each Tablet 1 Each PO DAILY 11/13/18 Reported Flakita Allergy (Fexofenadine Hcl) 180 Mg Tablet 180 Mg PO DAILY 11/13/18 Reported Proair Respiclick (Albuterol Sulfate) 90 Mcg Aer.pow.ba 90 Mcg INH Q6HRS 11/13/18 Reported Azelastine Hcl 137 Mcg/0.137 Ml Salley.pump 137 Mcg INH BID 11/13/18 Reported Klor-Con M20 (Potassium Chloride) 20 Meq Tab.er.prt 20 Mg PO TID 11/13/18 Reported Mag-Oxide (Magnesium Oxide) 400 Mg Tablet 400 Mg PO TID 11/13/18 Reported Breo Ellipta 100-25 Mcg INH (Fluticasone/Vilanterol) 1 Each Blst.w.dev 1 Inh INH DAILY 11/13/18 Reported Atenolol 50 Mg Tablet 50 Mg PO BID 11/13/18 Reported Breo Ellipta 100-25 Mcg INH (Fluticasone/Vilanterol) 1 Each Blst.w.dev 1 Puff INH DAILY 11/13/18 Reported Doxazosin Mesylate 4 Mg Tablet 4 Mg PO QHS 11/13/18 Reported Hydrochlorothiazide 25 Mg Tablet 25 Mg PO DAILY 11/13/18 Reported Montelukast Sodium Tablet (Montelukast Sodium) 10 Mg Tablet 10 Mg PO QHS 11/13/18 Reported Amlodipine-Benazepril 5-20 Mg (Amlodipine Besylate/Benazepril) 1 Each Capsule 5-20 Mg PO BID 11/13/18 Reported Comments The left ventricular systolic function is normal. The Ejection Fraction is 65%. There is normal LV segmental wall motion. The left atrium is mildly dilated. Moderate aortic regurgitation. Trace mitral regurgitation. Mild tricuspid regurgitation. There is severe pulmonary hypertension. The PA pressure was estimated at 79 mmHg. There is no evidence of significant pericardial effusion. Impression . IMPRESSION: 1. Acute respiratory failure secondary to pneumonia, acute exacerbation of chronic obstructive pulmonary disease, acute diastolic congestive heart failure versus others. 2. Abnormal chest x-ray. 3. Pneumonia. 4. Acute exacerbation of chronic obstructive pulmonary disease. 5. Obesity, snoring and excessive daytime sleepiness, probable obstructive sleep apnea-hypopnea syndrome. 6. Hypertension. 7. Tobacco habituation. 8. secondary pulm htn, due to AI, copd, prob akil, diastolic chf vs others Plan . PLAN AND RECOMMENDATIONS: 1. I had a long discussion with him regarding the smoking cessation. I have advised him to stop smoking forever. 2. Continue steroids, no dose change, still has cough, wheezing. 3. Continue Rocephin and azithromycin. 4. echocardiogram reviewed 5. Titrate FiO2 to keep O2 saturation 92%. 6. Bronchodilator. 7. Lovenox for DVT prophylaxis. 8. Protonix for stress ulcer prophylaxis. 9. lose wt 10. I have discussed obstructive sleep apnea-hypopnea syndrome, the importance of diagnosis and treatment, if untreated increased cardiovascular and SCIENTIFIC HELPER morbidity or mortality. I do recommend a sleep study as an outpatient 11. A 6-minute walk at the time of discharge. 12. ? cardiology consult, has moderate AI 13. has pulm htn, will do cta of chest. le doppler discussed HERMES Odonnell pt, MD Nov 15, 2018 08:01
[2018-11-15] MEDS: BUDESONIDE 0.5 MG/2 ML NEBU. NEB SCH ×2 (08:10→20:38)
[2018-11-15] MEDS: IPRATRPIUM/ALBUTEROL 0.5/2.5MG 3 ML NEBU. NEB SCH ×4 (08:10→20:38)
[2018-11-15] MEDS ORDERED: IOHEXOL 350 MG/ML 100 ML VIAL. IV ONE (09:00)
[2018-11-15] MEDS ORDERED: VILANTEROL INH SCH (09:00)
[2018-11-15] MEDS ORDERED: FLUTICASONE INH SCH (09:00)
[2018-11-15] MEDS ORDERED: CONTRAST GIVEN. MC PRN (09:00)
[2018-11-15] MEDS: VITAMIN B12,B9,B6 COMPLEX 1 TABLET. PO SCH (10:07)
[2018-11-15] MEDS: LACTOBACILLUS RHAMNOSUS GG 1 CAPSULE. PO SCH ×2 (10:07→20:36)
[2018-11-15] MEDS: PANTOPRAZOLE 40 MG TABLET.DR. PO SCH (10:08)
[2018-11-15] MEDS: AZITHROMYCIN 250 MG TABLET. PO SCH (10:08)
[2018-11-15] MEDS: MAGNESIUM OXIDE 400 MG TABLET PO SCH ×3 (10:08→20:37)
[2018-11-15] MEDS: POTASSIUM CHLORIDE 20 MEQ TABLET.ER. PO SCH ×3 (10:08→17:15)
[2018-11-15] MEDS: CETIRIZINE HCL 10 MG TABLET. PO SCH (10:08)
[2018-11-15] MEDS: MULTIVITAMIN with MINERAL TABLET. PO SCH (10:08)
[2018-11-15] MEDS: amLODIPine BESYLATE 5 MG TABLET PO SCH ×2 (10:08→20:37)
[2018-11-15] MEDS: hydroCHLOROthiazide 25 MG TABLET PO SCH (10:08)
[2018-11-15] MEDS: LISINOPRIL 20 MG TABLET PO SCH ×2 (10:09→20:37)
[2018-11-15] MEDS: ATENOLOL 50 MG TABLET. PO SCH ×2 (10:09→20:36)
[2018-11-15] MEDS: NICOTINE 21MG PATCH. TD SCH (10:10)
--- NOTE | 2018-11-15 10:24 | PDOC2 ---
JULIA GALE DIGITAL PRODUCTION OPERATOR 11/15/18 1024: CARDIAC CONSULT DATE OF CONSULT Date of Consult DATE: 11/15/18 TIME: 10:13 REASON FOR CONSULT Reason for Consult: abnormal echo REFERRING PHYSICIAN Referring Physician: Dave SOURCE Source: Chart review, Patient HISTORY OF PRESENT ILLNESS HISTORY OF PRESENT ILLNESS This is a pleasant 57 yo male admitted for complains of SOA and chills. Reports that he started having chills Sunday then progressively SOa on Sunday. Upon admission he was noted with fever and pneumonia. He has COPD with chronic tobacco use. No prior hx of CAD or arrhythmias. He has been experiencing some fatigu but this does not affect his functioning especially at work which requires heavy exertion and lifting. No exertional CP or LIM prior to his pneumonia. No changes in his ADLs. No exertional leg pain except his lef ankle where he had his ankle surgery and no symptoms of jaw tightness, nausea, vomiting. Denies any palpitations or frequent dizziness. He does have positional dizziness brief but nothing significant. It has been a while since his last stress test. PAST MEDICAL HISTORY Cardiovascular: HTN Pulmonary: COPD CENTRAL NERVOUS SYSTEM: Other (No pertinent history) GI: GERD Heme/Onc: No pertinent hx Hepatobiliary: No pertinent hx Psych: No pertinent hx Musculoskeletal: Osteoarthritis Rheumatologic: No pertinent hx Infectious disease: No pertinent hx ENT: Allergic Rhinitis Renal/: No pertinent hx Endocrine: No pertinent hx Dermatology: No pertinent hx PAST SURGICAL HISTORY Past Surgical History: Arthroscopy (left ankle fracture repair) FAMILY HISTORY Family History: Heart Disease (father with valvular disease at age 88) SOCIAL HISTORY Smoke: <1 pack per day ALCOHOL: none Drugs: None Lives: with Family CURRENT MEDICATIONS CURRENT MEDICATIONS Current Medications Medications (Trade) Dose Ordered Sig/Zack Route PRN Reason Start Time Stop Time Status Last Admin Dose Admin Ceftriaxone Sodium (Rocephin) 1 gm Q24H IVP 11/14/18 16:00 11/14/18 16:20 Albuterol/ Ipratropium (Duoneb) 3 ml RTQID NEB 11/14/18 12:00 11/15/18 08:10 Enoxaparin Sodium (Lovenox 40mg Syringe) 40 mg Q24H SQ 11/14/18 11:15 11/14/18 11:42 Pantoprazole Sodium (Protonix) 40 mg DAILYAC PO 11/14/18 11:00 11/14/18 11:41 Lactobacillus Rhamnosus (Culturelle) 1 cap BID PO 11/14/18 21:00 11/14/18 21:13 Atenolol (Tenormin) 50 mg BID PO 11/14/18 21:00 11/14/18 21:14 Potassium Chloride (Klor-Con) 20 meq TIDWMEALS PO 11/14/18 17:00 11/14/18 16:20 Magnesium Oxide (Magnesium Oxide) 400 mg TID PO 11/14/18 21:00 11/14/18 21:13 Montelukast Sodium (Singulair) 10 mg QHS PO 11/14/18 21:00 11/14/18 21:13 Budesonide (Pulmicort) 0.5 mg RTBID NEB 11/14/18 20:00 11/15/18 08:10 Lisinopril (Prinivil) 20 mg BID PO 11/14/18 21:00 11/14/18 21:14 ALLERGIES ALLERGIES: Coded Allergies: Penicillins (Verified Allergy, Intermediate, HIVES, 11/13/18) ROS Review of System 14 point ROS evaluated with pertinent positives noted per HPI PHYSICAL EXAM General: Alert, Oriented X3, Cooperative, No acute distress HEENT: Atraumatic, Mucous membr. moist/pink Lungs: Other (diffuse wheeze) Heart: Regular rate (SR with occasional PVCs), Other (S4; 3/6 systolic murmur to LLS border) Abdomen: Soft, Other (obese) Extremities: No cyanosis, Other (1-2+ bilateral LE pitting edema; varicosities) Skin: No breakdown, No significant lesion, Other Neuro: Normal speech, Sensation intact Psych/Mental Status: Mental status NL, Mood NL MUSCULOSKELETAL: Osteoarthritic changes both hands VITALS VITALS Vital Signs Date Time Temp Pulse Resp B/P (MAP) Pulse Ox O2 Delivery O2 Flow Rate FiO2 11/15/18 08:13 94 Nasal Cannula 4.0 11/15/18 07:00 98.2 72 20 144/72 (96) 98.2 ECHOCARDIOGRAM ECHOCARDIOGRAM <Conclusion> The left ventricular systolic function is normal. The Ejection Fraction is 65%. There is normal LV segmental wall motion. The left atrium is mildly dilated. Moderate aortic regurgitation. Trace mitral regurgitation. Mild tricuspid regurgitation. There is severe pulmonary hypertension. The PA pressure was estimated at 79 mmHg. There is no evidence of significant pericardial effusion. DATE: 11/14/18 3758 ASSESSMENT/PLAN ASSESSMENT/PLAN 1. Acute respiratory failure with pneumonia/fever and AECOPD: pulmonary following 2. Valvular insufficiency: mod AI, mild TR. EF and WM nml. 3. Severe pulmonary HTN suspect secondary: PAP at 79 mmHg 4. Obesity with probable NAYAN 5. Acute diastolic CHF: multifactorial as above mainly due to pulmonary issues 6. Hyponatremia/hypomagnesemia/hypokalemia: resolved. This likely inducing his intermittent PVCs 7. Tobaccoism 8. HTN: controlled 9. alcohol use: 3-4 beers nightly Recommendations 1. chest CTA and LE US pending per pulmonary 2. Smoking cessation 3. No cardiac symptoms. Discussed symptoms of ACS and arrhythmias and to call if any significant issues as an outpt. May follow up in office 4. Continue with pulmonary optimization 5. May restart on ECASA 81 mg for primary prevention. Check TSH and lipids and will start statin per level. 6. dietitian consult for DASH and wt loss. Decrease beer consumption and smoking cessation and will need NAYAN outpt w/u 7. Follow up TTE in 6 mo to 1 yr as an outpt. DENNIS CERNA MD 11/15/18 4091: CARDIAC CONSULT ASSESSMENT/PLAN ASSESSMENT/PLAN Pt. seen and examined. Agree with above Wide Area Network Administrator note. 57 y.o male with secondary pulm HTN. No acute cardiac issues. Echo wnl. valvular heart disease is mild. routine outpt f/u. thanks Continue pulm tx. JULIA GALE APRN Nov 15, 2018 10:24 DENNIS CERNA MD Nov 15, 2018 17:54
--- NOTE | 2018-11-15 10:32 | PDOC ---
IM PROGRESS NOTES- Subjective Subjective Continues to some cough and dyspnea. Objective Vitals Vital Signs Date Time Temp Pulse Resp B/P (MAP) Pulse Ox O2 Delivery O2 Flow Rate FiO2 11/15/18 10:09 72 144/72 11/15/18 08:13 94 Nasal Cannula 4.0 11/15/18 07:00 98.2 20 98.2 Input & Output Intake and Output 11/15/18 06:59 Intake Total 2300 ml Output Total 3175 ml Balance -875 ml Intake Oral 2300 ml Output Urine Total 3175 ml # Voids 1 Physical Exam Physical Exam General appearance - alert,ill appearing, and in no distress and oriented to person, place, and time Mental Status - alert, oriented to person, place, and time, affect appropriate to mood Head - normal Chest -bilateral wheezing Heart - S1 and S2 normal Abdomen - soft, nontender, nondistended, no masses or organomegaly Neurological - alert and oriented Musculoskeletal - no muscular tenderness noted Extremities - trace pedal edema Skin - warm and dry Labs Laboratory Tests Test 11/13/18 13:20 11/13/18 13:25 11/13/18 14:10 11/13/18 18:20 White Blood Count 19.1 x10^3/uL (4.0-11.0) Red Blood Count 4.26 x10^6/uL (4.30-5.70) Hemoglobin 14.1 g/dL (13.0-17.5) Hematocrit 41.2 % (39.0-53.0) Mean Corpuscular Volume 97 fL (79-100) Mean Corpuscular Hemoglobin 33 pg (25-35) Mean Corpuscular Hemoglobin Concent 34 g/dL (31-37) Red Cell Distribution Width 13.6 % (11.5-14.5) Platelet Count 174 x10^3/uL (140-400) Neutrophils (%) (Auto) 83 % (31-73) Lymphocytes (%) (Auto) 7 % (24-48) Monocytes (%) (Auto) 10 % (0-9) Eosinophils (%) (Auto) 0 % (0-3) Basophils (%) (Auto) 0 % (0-3) Neutrophils # (Auto) 15.9 x10^3uL (1.8-7.7) Lymphocytes # (Auto) 1.2 x10^3/uL (1.0-4.8) Monocytes # (Auto) 1.9 x10^3/uL (0.0-1.1) Eosinophils # (Auto) 0.0 x10^3/uL (0.0-0.7) Basophils # (Auto) 0.1 x10^3/uL (0.0-0.2) Segmented Neutrophils % 65 % (35-66) Band Neutrophils % 23 % (0-9) Lymphocytes % 6 % (24-48) Monocytes % 6 % (0-10) Platelet Estimate Adequate (ADEQUATE) Lactic Acid Level 1.8 mmol/L (0.4-2.0) O2 Saturation 97 % (92-99) Arterial Blood pH 7.46 (7.35-7.45) Arterial Blood pH (Temp corrected) 7.42 Arterial Blood pCO2 at Patient Temp 39 mmHg (35-46) Arterial Blood pCO2 (Temp correct) 44 mmHg Arterial Blood pO2 at Patient Temp 98 mmHg (75-108) Arterial Blood pO2 (Temp corrected) 114 mmHg Arterial Blood HCO3 27 mmol/L (21-28) Arterial Blood Base Excess 3 mmol/L (-3-3) FiO2 100% nrb Sodium Level 129 mmol/L (136-145) Potassium Level 3.3 mmol/L (3.5-5.1) Chloride Level 91 mmol/L (98-107) Carbon Dioxide Level 29 mmol/L (21-32) Anion Gap 9 (6-14) Blood Urea Nitrogen 11 mg/dL (8-26) Creatinine 1.0 mg/dL (0.7-1.3) Estimated GFR (Cockcroft-Gault) 76.7 BUN/Creatinine Ratio 11 (6-20) Glucose Level 150 mg/dL (70-99) Calcium Level 8.2 mg/dL (8.5-10.1) Total Bilirubin 1.0 mg/dL (0.2-1.0) Aspartate Amino Transf (AST/SGOT) 45 U/L (15-37) Alanine Aminotransferase (ALT/SGPT) 54 U/L (16-63) Alkaline Phosphatase 66 U/L (46-116) Creatine Kinase 246 U/L (39-308) Troponin I Quantitative < 0.017 ng/mL (0.000-0.055) IW-Ihj-H-Type Natriuretic Peptide 825 pg/mL (0-124) Total Protein 6.3 g/dL (6.4-8.2) Albumin 3.2 g/dL (3.4-5.0) Albumin/Globulin Ratio 1.0 (1.0-1.7) Influenza Type A Antigen Negative (NEGATIVE) Influenza Type B Antigen Negative (NEGATIVE) Test 11/13/18 19:30 11/14/18 03:15 Lactic Acid Level 1.3 mmol/L (0.4-2.0) Magnesium Level 1.6 mg/dL (1.8-2.4) 2.3 mg/dL (1.8-2.4) White Blood Count 16.9 x10^3/uL (4.0-11.0) Red Blood Count 4.58 x10^6/uL (4.30-5.70) Hemoglobin 15.1 g/dL (13.0-17.5) Hematocrit 44.8 % (39.0-53.0) Mean Corpuscular Volume 98 fL (79-100) Mean Corpuscular Hemoglobin 33 pg (25-35) Mean Corpuscular Hemoglobin Concent 34 g/dL (31-37) Red Cell Distribution Width 13.5 % (11.5-14.5) Platelet Count 155 x10^3/uL (140-400) Neutrophils (%) (Auto) 92 % (31-73) Lymphocytes (%) (Auto) 5 % (24-48) Monocytes (%) (Auto) 3 % (0-9) Eosinophils (%) (Auto) 0 % (0-3) Basophils (%) (Auto) 0 % (0-3) Neutrophils # (Auto) 15.4 x10^3uL (1.8-7.7) Lymphocytes # (Auto) 0.9 x10^3/uL (1.0-4.8) Monocytes # (Auto) 0.5 x10^3/uL (0.0-1.1) Eosinophils # (Auto) 0.0 x10^3/uL (0.0-0.7) Basophils # (Auto) 0.0 x10^3/uL (0.0-0.2) Sodium Level 135 mmol/L (136-145) Potassium Level 3.7 mmol/L (3.5-5.1) Chloride Level 98 mmol/L (98-107) Carbon Dioxide Level 28 mmol/L (21-32) Anion Gap 9 (6-14) Blood Urea Nitrogen 13 mg/dL (8-26) Creatinine 0.9 mg/dL (0.7-1.3) Estimated GFR (Cockcroft-Gault) 86.7 BUN/Creatinine Ratio 14 (6-20) Glucose Level 200 mg/dL (70-99) Calcium Level 8.3 mg/dL (8.5-10.1) Total Bilirubin 0.5 mg/dL (0.2-1.0) Aspartate Amino Transf (AST/SGOT) 39 U/L (15-37) Alanine Aminotransferase (ALT/SGPT) 52 U/L (16-63) Alkaline Phosphatase 71 U/L (46-116) Total Protein 7.3 g/dL (6.4-8.2) Albumin 3.1 g/dL (3.4-5.0) Albumin/Globulin Ratio 0.7 (1.0-1.7) Meds Current Medications Albuterol/ Ipratropium (Duoneb) 3 ml RTQID NEB Last administered on 11/15/18 08:10; Start 11/14/18 at 12:00 Amlodipine Besylate (Norvasc) 5 mg BID PO Last administered on 11/15/18 10:08 ; Start 11/15/18 at 09:00 Atenolol (Tenormin) 50 mg BID PO Last administered on 11/15/18 10:09; Start at 21:00 Budesonide (Pulmicort) 0.5 mg RTBID NEB Last administered on 11/15/18 08:10; Start 11/14/18 at 20:00 Ceftriaxone Sodium (Rocephin) 1 gm Q24H IVP Last administered on 11/14/18 16: 20; Start 11/14/18 at 16:00 Cetirizine HCl (ZyrTEC) 10 mg DAILY PO Last administered on 11/15/18 10:08; Start 11/15/18 at 09:00 Enoxaparin Sodium (Lovenox 40mg Syringe) 40 mg Q24H SQ Last administered on 06/24at 11:42; Start 11/14/18 at 11:15 Hydrochlorothiazide (Hydrodiuril) 25 mg DAILY PO Last administered on 10:08; Start 11/15/18 at 09:00 Info (CONTRAST GIVEN -- Rx MONITORING) 1 each PRN DAILY PRN MC SEE COMMENTS; Start 11/15/18 at 09:00; Stop 11/17/18 at 08:59 Iohexol (Omnipaque 350 Mg/ml) 100 ml 1X ONCE IV ; Start 11/15/18 at 09:00; Stop 11/15/18 at 09:01; Status DC Lactobacillus Rhamnosus (Culturelle) 1 cap BID PO Last administered on 10:07; Start 11/14/18 at 21:00 Lisinopril (Prinivil) 20 mg BID PO Last administered on 11/15/18 10:09; Start 11/14/18 at 21:00 Magnesium Oxide (Magnesium Oxide) 400 mg TID PO Last administered on 11/15/18 10:08; Start 11/14/18 at 21:00 Montelukast Sodium (Singulair) 10 mg QHS PO Last administered on 11/14/18at 21: 13; Start 11/14/18 at 21:00 Multivitamins (Thera M Plus) 1 tab DAILY PO Last administered on 11/15/18 10: 08; Start 11/15/18 at 09:00 Non-Formulary Medication (Fluticasone/ Vilanterol (Breo Ellipta 100-25 Mcg INH) ) 1 inh DAILY INH ; Start 11/15/18 at 09:00; Status UNV Pantoprazole Sodium (Protonix) 40 mg DAILYAC PO Last administered on 11/15/18 10:08; Start 11/14/18 at 11:00 Potassium Chloride (Klor-Con) 20 meq TIDWMEALS PO Last administered on 10:08; Start 11/14/18 at 17:00 Vitamin B Complex (Folbic Tablet) 1 tab DAILY PO Last administered on 10:07; Start 11/15/18 at 09:00 Assessment Assessment 1. Acute hypoxic respiratory failure. 2. Pneumonia. 3. Acute exacerbation of chronic obstructive pulmonary disease. 4. Hypertension. 5. Allergic rhinitis. PLAN: The patient is strongly advised to stop smoking, started on nicotine patch. Consult Dr. Copeland for Pulmonary evaluation and management. Consult Dr. Jason Martinez for Infectious Disease evaluation and management. The patient has been started on IV Rocephin and Zithromax, IV steroids, bronchodilators and oxygen. For details, please review the orders. Pulmonary hypertension severe Moderate aortic regurgitation Ejection fraction is 65% on echocardiogram. Consult Dr. Pitt for cardiology evaluation and management. Plan Plan For more details regarding further plans, please refer to the orders. EDWARD OATES MD Nov 15, 2018 10:32
--- NOTE | 2018-11-15 10:33 | PDOC ---
Infectious Disease Note Subjective Subjective pt is feeling better ROS ROS no n/v/d/sob/fever Vital Sign Vital Signs Vital Signs Date Time Temp Pulse Resp B/P (MAP) Pulse Ox O2 Delivery O2 Flow Rate FiO2 11/15/18 10:09 72 144/72 11/15/18 08:13 94 Nasal Cannula 4.0 11/15/18 07:00 98.2 20 98.2 Physical Exam PHYSICAL EXAM GENERAL: Alert, oriented gentleman, not in distress. VITAL SIGNS: Stable. HEENT: NAD. NECK: Supple. No JVP. No lymphadenopathy. LUNGS: Clear. HEART: S1 and S2 regular. ABDOMEN: Benign. EXTREMITIES: No edema or cyanosis. SKIN: Unremarkable. NEUROLOGICAL: The patient is neurologically intact. Labs Micro Microbiology 11/13/18 Blood Culture - Preliminary, Resulted NO GROWTH AFTER 1 DAY Objective Assessment Fever Leukocytosis Pneumonia COPD HTN Obesity Smoking Plan Plan of Care Rocephine and azithro supportive care adv to quit smoking adv to lose wt KAIA MANCILLA MD Nov 15, 2018 10:33
[2018-11-15] MEDS ORDERED: DEXTROSE 50% 25 GM / 50ML DISP.SYRIN. IV PRN (10:45)
[2018-11-15 11:00] VITALS: BP 135/63
[2018-11-15] MEDS: ENOXAPARIN 40 MG/0.4 ML SYRINGE. SQ SCH (12:22)
[2018-11-15] MEDS: methylPREDNISolone SOD SUCC PF 40 MG/ML VIAL. IV SCH ×2 (12:22→15:09)
[2018-11-15] MEDS: INSULIN LISPRO 300 UNITS/3 ML INSULN.PEN. SQ SCH ×2 (12:28→17:19)
--- NOTE | 2018-11-15 12:50 | RAD ---
Examination: CT ANGIOGRAPHY CHEST History: soa Omni 350 100ml Comparison/Correlation: None Findings: Axial images of the chest were obtained following IV contrast according to pulmonary arteriography protocol. MIP images provided. Sagittal and coronal reformatted images provided. Small bilateral pleural effusions are present. Enlarged lymph node measuring 1.3 cm x 1.7 cm present within the superior matter cell fat along the left side of the aortic arch. Smaller lymph node also present involving the superior mediastinum. Multiple right paratracheal lymph nodes are present but small in size. Nonenlarged right hilar lymph nodes are present. Mild lingular atelectasis is present. Minimal right basilar atelectasis is present adjacent to the major fissure. Respiratory motion limits evaluation for pulmonary arterial thromboembolic disease at the mid thoracic and lower lung field levels. Thoracic aorta is unremarkable. Low-attenuation nodular involvement of the adrenal glands compatible with adenomatous involvement or hyperinflation noted. Impression: No central pulmonary arterial thromboembolic disease. Evaluation beyond second-order branches is limited due to respiratory motion. Linear atelectasis involving the lingula and right middle lobe. Enlarged lymph node of the superior mediastinum. Interval follow-up or other evaluation is recommended as neoplastic or reactive process may account for this finding. Small bilateral pleural effusions. PQRS Compliance Statement: One or more of the following individualized dose reduction techniques were utilized for this examination: 1. Automated exposure control 2. Adjustment of the mA and/or kV according to patient size 3. Use of iterative reconstruction technique Electronically signed by: Celestine Collier MD (11/15/2018 12:47 PM) [facility]
--- NOTE | 2018-11-15 14:20 | RAD ---
Left leg venous Doppler study: Clinical indications: Left leg edema. Findings: Duplex sonography (including izquierdo scale evaluation and color flow and waveform spectral analysis) of the proximal aspect of the greater saphenous vein and the proximal aspect of the profunda femoral vein and the entire length of the common femoral and superficial femoral and popliteal veins and the tibioperoneal trunk and the proximal aspect of the posterior tibial and peroneal veins of the left leg was performed. Normal compressibility, augmentation of color Doppler flow after calf compression, and respiratory variation of Doppler flow is seen. Thus, there are no sonographic findings of deep venous thrombosis within these veins. Impression: There are no sonographic findings of deep venous thrombosis within the veins discussed above of the left lower extremity. Right leg venous Doppler study: Clinical indications: Right leg edema. Findings: Duplex sonography (including izquierdo scale evaluation and color flow and waveform spectral analysis) of the proximal aspect of the greater saphenous vein and proximal aspect of the profunda femoral vein and the entire length of the common femoral and superficial femoral and popliteal veins and the tibioperoneal trunk and the proximal aspect of the posterior tibial and peroneal veins of the right leg was performed. Normal compressibility, augmentation of color Doppler flow after calf compression, and respiratory variation of Doppler flow is seen. Thus, there are no sonographic findings of deep venous thrombosis within these veins. Impression: There are no sonographic findings of deep venous thrombosis within the veins discussed above of the right lower extremity. Electronically signed by: Kg Piper MD (11/15/2018 2:17 PM) [id number]
[2018-11-15 15:00] VITALS: BP 140/66
[2018-11-15] MEDS: cefTRIAXone IV Push 1 GM VIAL. IVP SCH (15:08)
--- NOTE | 2018-11-15 17:35 | NUR ---
Assumed care of patient at around 1735. Patient awake & alert in bed, at bedside. No complaints of pain. Will continue to monitor.
[2018-11-15 19:10] VITALS: BP 140/68
[2018-11-15] MEDS: MONTELUKAST SODIUM 10 MG TABLET. PO SCH (20:37)
[2018-11-15 23:04] VITALS: BP 136/77
[2018-11-16 03:34] VITALS: BP 138/78
[2018-11-16 04:59] LABS: BASO % 0 % (0-3); EOS % 0 % (0-3); HEMATOCRIT 43.5 % (39.0-53.0); HEMOGLOBIN 14.4 g/dL (13.0-17.5); LYMPH # 0.9 x10^3/uL (1.0-4.8); LYMPH % 4 % (24-48); MEAN CORPUSCULAR HEMOGLOBIN 33 pg (25-35); MEAN CORPUSCULAR HGB CONC 33 g/dL (31-37); MEAN CORPUSCULAR VOLUME 99 fL (79-100); MONO # 1.5 x10^3/uL (0.0-1.1); MONO % 6 % (0-9); NEUT # 20.5 x10^3uL (1.8-7.7); NEUT % 90 % (31-73); PLATELET COUNT 222 x10^3/uL (140-400); RED CELL DISTRIBUTION WIDTH 13.7 % (11.5-14.5); WHITE BLOOD COUNT 22.9 x10^3/uL (4.0-11.0)
[2018-11-16 05:46] LABS: CHOLESTEROL/HDL RATIO 5.2
[2018-11-16 05:54] LABS: ALBUMIN 3.1 g/dL (3.4-5.0); ALBUMIN/GLOBULIN RATIO 0.8 (1.0-1.7); CALCIUM 8.8 mg/dL (8.5-10.1); CREATININE 0.7 mg/dL (0.7-1.3); GFR 115.8; POTASSIUM 3.8 mmol/L (3.5-5.1); TOTAL BILIRUBIN 0.4 mg/dL (0.2-1.0); TOTAL PROTEIN 6.8 g/dL (6.4-8.2)
[2018-11-16 07:00] VITALS: BP 154/78
[2018-11-16] MEDS: IPRATRPIUM/ALBUTEROL 0.5/2.5MG 3 ML NEBU. NEB SCH ×4 (07:58→20:49)
[2018-11-16] MEDS: BUDESONIDE 0.5 MG/2 ML NEBU. NEB SCH ×2 (07:58→20:00)
--- NOTE | 2018-11-16 08:38 | PDOC ---
PULMONARY PROGRESS NOTES Subjective has sob cough, on 02, no pain Vitals Vital Signs Date Time Temp Pulse Resp B/P (MAP) Pulse Ox O2 Delivery O2 Flow Rate FiO2 11/16/18 08:00 92 Nasal Cannula 4.0 11/16/18 07:00 98.2 72 22 154/78 (103) 98.2 ROS: No Nausea, No Chest Pain General: Alert, Oriented X4 HEENT: Other (nc at perrl shallow oropharynx. ) Lungs: Crackles (a few end exp wheezing), Other (a few end exp wheezing) Cardiovascular: S1, S2 Abdomen: Soft, Non-tender Neuro Exam: Alert, Oriented Extremities: Other (+1 edema) Skin: Warm Labs Laboratory Tests Test 11/15/18 11:54 11/15/18 16:53 11/15/18 20:34 11/16/18 04:00 Glucose (Fingerstick) 232 mg/dL (70-99) 167 mg/dL (70-99) 244 mg/dL (70-99) White Blood Count 22.9 x10^3/uL (4.0-11.0) Red Blood Count 4.40 x10^6/uL (4.30-5.70) Hemoglobin 14.4 g/dL (13.0-17.5) Hematocrit 43.5 % (39.0-53.0) Mean Corpuscular Volume 99 fL (79-100) Mean Corpuscular Hemoglobin 33 pg (25-35) Mean Corpuscular Hemoglobin Concent 33 g/dL (31-37) Red Cell Distribution Width 13.7 % (11.5-14.5) Platelet Count 222 x10^3/uL (140-400) Neutrophils (%) (Auto) 90 % (31-73) Lymphocytes (%) (Auto) 4 % (24-48) Monocytes (%) (Auto) 6 % (0-9) Eosinophils (%) (Auto) 0 % (0-3) Basophils (%) (Auto) 0 % (0-3) Neutrophils # (Auto) 20.5 x10^3uL (1.8-7.7) Lymphocytes # (Auto) 0.9 x10^3/uL (1.0-4.8) Monocytes # (Auto) 1.5 x10^3/uL (0.0-1.1) Eosinophils # (Auto) 0.0 x10^3/uL (0.0-0.7) Basophils # (Auto) 0.0 x10^3/uL (0.0-0.2) Sodium Level 139 mmol/L (136-145) Potassium Level 3.8 mmol/L (3.5-5.1) Chloride Level 98 mmol/L (98-107) Carbon Dioxide Level 36 mmol/L (21-32) Anion Gap 5 (6-14) Blood Urea Nitrogen 16 mg/dL (8-26) Creatinine 0.7 mg/dL (0.7-1.3) Estimated GFR (Cockcroft-Gault) 115.8 BUN/Creatinine Ratio 23 (6-20) Glucose Level 137 mg/dL (70-99) Calcium Level 8.8 mg/dL (8.5-10.1) Total Bilirubin 0.4 mg/dL (0.2-1.0) Aspartate Amino Transf (AST/SGOT) 64 U/L (15-37) Alanine Aminotransferase (ALT/SGPT) 77 U/L (16-63) Alkaline Phosphatase 69 U/L (46-116) Total Protein 6.8 g/dL (6.4-8.2) Albumin 3.1 g/dL (3.4-5.0) Albumin/Globulin Ratio 0.8 (1.0-1.7) Triglycerides Level 81 mg/dL (0-150) Cholesterol Level 99 mg/dL (0-200) LDL Cholesterol, Calculated 64 mg/dL (0-100) VLDL Cholesterol, Calculated 16 mg/dL (0-40) Non-HDL Cholesterol Calculated 80 mg/dL (0-129) HDL Cholesterol 19 mg/dL (40-60) Cholesterol/HDL Ratio 5.2 Thyroid Stimulating Hormone (TSH) 0.308 uIU/mL (0.358-3.74) Test 11/16/18 07:44 Glucose (Fingerstick) 176 mg/dL (70-99) Laboratory Tests Test 11/15/18 11:54 11/15/18 16:53 11/15/18 20:34 11/16/18 04:00 Glucose (Fingerstick) 232 mg/dL (70-99) 167 mg/dL (70-99) 244 mg/dL (70-99) White Blood Count 22.9 x10^3/uL (4.0-11.0) Red Blood Count 4.40 x10^6/uL (4.30-5.70) Hemoglobin 14.4 g/dL (13.0-17.5) Hematocrit 43.5 % (39.0-53.0) Mean Corpuscular Volume 99 fL (79-100) Mean Corpuscular Hemoglobin 33 pg (25-35) Mean Corpuscular Hemoglobin Concent 33 g/dL (31-37) Red Cell Distribution Width 13.7 % (11.5-14.5) Platelet Count 222 x10^3/uL (140-400) Neutrophils (%) (Auto) 90 % (31-73) Lymphocytes (%) (Auto) 4 % (24-48) Monocytes (%) (Auto) 6 % (0-9) Eosinophils (%) (Auto) 0 % (0-3) Basophils (%) (Auto) 0 % (0-3) Neutrophils # (Auto) 20.5 x10^3uL (1.8-7.7) Lymphocytes # (Auto) 0.9 x10^3/uL (1.0-4.8) Monocytes # (Auto) 1.5 x10^3/uL (0.0-1.1) Eosinophils # (Auto) 0.0 x10^3/uL (0.0-0.7) Basophils # (Auto) 0.0 x10^3/uL (0.0-0.2) Sodium Level 139 mmol/L (136-145) Potassium Level 3.8 mmol/L (3.5-5.1) Chloride Level 98 mmol/L (98-107) Carbon Dioxide Level 36 mmol/L (21-32) Anion Gap 5 (6-14) Blood Urea Nitrogen 16 mg/dL (8-26) Creatinine 0.7 mg/dL (0.7-1.3) Estimated GFR (Cockcroft-Gault) 115.8 BUN/Creatinine Ratio 23 (6-20) Glucose Level 137 mg/dL (70-99) Calcium Level 8.8 mg/dL (8.5-10.1) Total Bilirubin 0.4 mg/dL (0.2-1.0) Aspartate Amino Transf (AST/SGOT) 64 U/L (15-37) Alanine Aminotransferase (ALT/SGPT) 77 U/L (16-63) Alkaline Phosphatase 69 U/L (46-116) Total Protein 6.8 g/dL (6.4-8.2) Albumin 3.1 g/dL (3.4-5.0) Albumin/Globulin Ratio 0.8 (1.0-1.7) Triglycerides Level 81 mg/dL (0-150) Cholesterol Level 99 mg/dL (0-200) LDL Cholesterol, Calculated 64 mg/dL (0-100) VLDL Cholesterol, Calculated 16 mg/dL (0-40) Non-HDL Cholesterol Calculated 80 mg/dL (0-129) HDL Cholesterol 19 mg/dL (40-60) Cholesterol/HDL Ratio 5.2 Thyroid Stimulating Hormone (TSH) 0.308 uIU/mL (0.358-3.74) Test 11/16/18 07:44 Glucose (Fingerstick) 176 mg/dL (70-99) Medications Active Scripts Medications Dose Route/Sig Max Daily Dose Days Date Category Folbic Rf Tablet (B12/Levomefolate Calcium/B-6) 1 Each Tablet 1 Each PO DAILY 11/13/18 Reported Multi Vitamin Daily (Multivitamin) 1 Each Tablet 1 Each PO DAILY 11/13/18 Reported Flakita Allergy (Fexofenadine Hcl) 180 Mg Tablet 180 Mg PO DAILY 11/13/18 Reported Proair Respiclick (Albuterol Sulfate) 90 Mcg Aer.pow.ba 90 Mcg INH Q6HRS 11/13/18 Reported Azelastine Hcl 137 Mcg/0.137 Ml [place].pump 137 Mcg INH BID 11/13/18 Reported Klor-Con M20 (Potassium Chloride) 20 Meq Tab.er.prt 20 Mg PO TID 11/13/18 Reported Mag-Oxide (Magnesium Oxide) 400 Mg Tablet 400 Mg PO TID 11/13/18 Reported Breo Ellipta 100-25 Mcg INH (Fluticasone/Vilanterol) 1 Each Blst.w.dev 1 Inh INH DAILY 11/13/18 Reported Atenolol 50 Mg Tablet 50 Mg PO BID 11/13/18 Reported Breo Ellipta 100-25 Mcg INH (Fluticasone/Vilanterol) 1 Each Blst.w.dev 1 Puff INH DAILY 11/13/18 Reported Doxazosin Mesylate 4 Mg Tablet 4 Mg PO QHS 11/13/18 Reported Hydrochlorothiazide 25 Mg Tablet 25 Mg PO DAILY 11/13/18 Reported Montelukast Sodium Tablet (Montelukast Sodium) 10 Mg Tablet 10 Mg PO QHS 11/13/18 Reported Amlodipine-Benazepril 5-20 Mg (Amlodipine Besylate/Benazepril) 1 Each Capsule 5-20 Mg PO BID 11/13/18 Reported Comments The left ventricular systolic function is normal. The Ejection Fraction is 65%. There is normal LV segmental wall motion. The left atrium is mildly dilated. Moderate aortic regurgitation. Trace mitral regurgitation. Mild tricuspid regurgitation. There is severe pulmonary hypertension. The PA pressure was estimated at 79 mmHg. There is no evidence of significant pericardial effusion. Impression . IMPRESSION: 1. Acute respiratory failure secondary to pneumonia, acute exacerbation of chronic obstructive pulmonary disease, acute diastolic congestive heart failure versus others. 2. Abnormal chest x-ray. 3. Pneumonia. 4. Acute exacerbation of chronic obstructive pulmonary disease. 5. Obesity, snoring and excessive daytime sleepiness, probable obstructive sleep apnea-hypopnea syndrome. 6. Hypertension. 7. Tobacco habituation. 8. secondary pulm htn, due to AI, copd, prob akil, diastolic chf vs others Plan . PLAN AND RECOMMENDATIONS: 1. I had a long discussion with him regarding the smoking cessation. I have advised him to stop smoking forever. 2. change solumedrol to 40 mg bid 3. on Rocephin and azithromycin. per id 4. echocardiogram reviewed 5. Titrate FiO2 to keep O2 saturation 92%. 6. Bronchodilator. 7. Lovenox for DVT prophylaxis. 8. Protonix for stress ulcer prophylaxis. 9. lose wt 10. I have discussed obstructive sleep apnea-hypopnea syndrome, the importance of diagnosis and treatment, if untreated increased cardiovascular and [employer]EOROLOG[employer] AIDE morbidity or mortality. I do recommend a sleep study as an outpatient 11. A 6-minute walk at the time of discharge. overnight ox sunday night 12. cardiology consulted, 13. has pulm htn, cta of chest, no pe. le doppler, neg 14. pfts as out pt fu w dr maloney or hemanth in a few wks discussed w rn, pt, his , HERMES Alonso MD Nov 16, 2018 08:38
[2018-11-16] MEDS: AZITHROMYCIN 250 MG TABLET. PO SCH (08:43)
[2018-11-16] MEDS: LACTOBACILLUS RHAMNOSUS GG 1 CAPSULE. PO SCH ×2 (08:44→21:19)
[2018-11-16] MEDS: LISINOPRIL 20 MG TABLET PO SCH ×2 (08:44→21:19)
[2018-11-16] MEDS: MAGNESIUM OXIDE 400 MG TABLET PO SCH ×3 (08:45→21:19)
[2018-11-16] MEDS: MULTIVITAMIN with MINERAL TABLET. PO SCH (08:45)
[2018-11-16] MEDS: hydroCHLOROthiazide 25 MG TABLET PO SCH (08:45)
[2018-11-16] MEDS: POTASSIUM CHLORIDE 20 MEQ TABLET.ER. PO SCH ×3 (08:45→17:27)
[2018-11-16] MEDS: VITAMIN B12,B9,B6 COMPLEX 1 TABLET. PO SCH (08:45)
[2018-11-16] MEDS: PANTOPRAZOLE 40 MG TABLET.DR. PO SCH (08:46)
[2018-11-16] MEDS: ATENOLOL 50 MG TABLET. PO SCH ×2 (08:46→21:19)
[2018-11-16] MEDS: NICOTINE 21MG PATCH. TD SCH (08:47)
[2018-11-16] MEDS: methylPREDNISolone SOD SUCC PF 40 MG/ML VIAL. IV SCH ×2 (08:48→15:10)
[2018-11-16] MEDS: CETIRIZINE HCL 10 MG TABLET. PO SCH (08:49)
[2018-11-16] MEDS: amLODIPine BESYLATE 5 MG TABLET PO SCH ×2 (09:06→21:19)
[2018-11-16] MEDS: INSULIN LISPRO 300 UNITS/3 ML INSULN.PEN. SQ SCH ×3 (09:07→17:36)
--- NOTE | 2018-11-16 10:52 | PDOC ---
IM PROGRESS NOTES- Subjective Subjective Continues to have some cough and dyspnea. Objective Vitals Vital Signs Date Time Temp Pulse Resp B/P (MAP) Pulse Ox O2 Delivery O2 Flow Rate FiO2 11/16/18 09:06 72 154/78 11/16/18 08:00 92 Nasal Cannula 4.0 11/16/18 07:00 98.2 22 98.2 Input & Output Intake and Output 11/16/18 06:59 Intake Total 1800 ml Output Total 2350 ml Balance -550 ml Intake Oral 1800 ml Output Urine Total 2350 ml Physical Exam Physical Exam General appearance - alert,ill appearing, and in moderate distress and oriented to person, place, and time Mental Status - alert, oriented to person, place, and time, affect appropriate to mood Head - normal Chest -bilateral wheezing Heart - S1 and S2 normal Abdomen - soft, nontender, nondistended, no masses or organomegaly Neurological - alert and oriented Musculoskeletal - no muscular tenderness noted Extremities - trace pedal edema Skin - warm and dry Labs Laboratory Tests Test 11/15/18 11:54 11/15/18 16:53 11/15/18 20:34 11/16/18 04:00 Glucose (Fingerstick) 232 mg/dL (70-99) 167 mg/dL (70-99) 244 mg/dL (70-99) White Blood Count 22.9 x10^3/uL (4.0-11.0) Red Blood Count 4.40 x10^6/uL (4.30-5.70) Hemoglobin 14.4 g/dL (13.0-17.5) Hematocrit 43.5 % (39.0-53.0) Mean Corpuscular Volume 99 fL (79-100) Mean Corpuscular Hemoglobin 33 pg (25-35) Mean Corpuscular Hemoglobin Concent 33 g/dL (31-37) Red Cell Distribution Width 13.7 % (11.5-14.5) Platelet Count 222 x10^3/uL (140-400) Neutrophils (%) (Auto) 90 % (31-73) Lymphocytes (%) (Auto) 4 % (24-48) Monocytes (%) (Auto) 6 % (0-9) Eosinophils (%) (Auto) 0 % (0-3) Basophils (%) (Auto) 0 % (0-3) Neutrophils # (Auto) 20.5 x10^3uL (1.8-7.7) Lymphocytes # (Auto) 0.9 x10^3/uL (1.0-4.8) Monocytes # (Auto) 1.5 x10^3/uL (0.0-1.1) Eosinophils # (Auto) 0.0 x10^3/uL (0.0-0.7) Basophils # (Auto) 0.0 x10^3/uL (0.0-0.2) Sodium Level 139 mmol/L (136-145) Potassium Level 3.8 mmol/L (3.5-5.1) Chloride Level 98 mmol/L (98-107) Carbon Dioxide Level 36 mmol/L (21-32) Anion Gap 5 (6-14) Blood Urea Nitrogen 16 mg/dL (8-26) Creatinine 0.7 mg/dL (0.7-1.3) Estimated GFR (Cockcroft-Gault) 115.8 BUN/Creatinine Ratio 23 (6-20) Glucose Level 137 mg/dL (70-99) Calcium Level 8.8 mg/dL (8.5-10.1) Total Bilirubin 0.4 mg/dL (0.2-1.0) Aspartate Amino Transf (AST/SGOT) 64 U/L (15-37) Alanine Aminotransferase (ALT/SGPT) 77 U/L (16-63) Alkaline Phosphatase 69 U/L (46-116) Total Protein 6.8 g/dL (6.4-8.2) Albumin 3.1 g/dL (3.4-5.0) Albumin/Globulin Ratio 0.8 (1.0-1.7) Triglycerides Level 81 mg/dL (0-150) Cholesterol Level 99 mg/dL (0-200) LDL Cholesterol, Calculated 64 mg/dL (0-100) VLDL Cholesterol, Calculated 16 mg/dL (0-40) Non-HDL Cholesterol Calculated 80 mg/dL (0-129) HDL Cholesterol 19 mg/dL (40-60) Cholesterol/HDL Ratio 5.2 Thyroid Stimulating Hormone (TSH) 0.308 uIU/mL (0.358-3.74) Test 11/16/18 07:44 Glucose (Fingerstick) 176 mg/dL (70-99) Laboratory Tests Test 11/15/18 11:54 11/15/18 16:53 11/15/18 20:34 11/16/18 04:00 Glucose (Fingerstick) 232 mg/dL (70-99) 167 mg/dL (70-99) 244 mg/dL (70-99) White Blood Count 22.9 x10^3/uL (4.0-11.0) Red Blood Count 4.40 x10^6/uL (4.30-5.70) Hemoglobin 14.4 g/dL (13.0-17.5) Hematocrit 43.5 % (39.0-53.0) Mean Corpuscular Volume 99 fL (79-100) Mean Corpuscular Hemoglobin 33 pg (25-35) Mean Corpuscular Hemoglobin Concent 33 g/dL (31-37) Red Cell Distribution Width 13.7 % (11.5-14.5) Platelet Count 222 x10^3/uL (140-400) Neutrophils (%) (Auto) 90 % (31-73) Lymphocytes (%) (Auto) 4 % (24-48) Monocytes (%) (Auto) 6 % (0-9) Eosinophils (%) (Auto) 0 % (0-3) Basophils (%) (Auto) 0 % (0-3) Neutrophils # (Auto) 20.5 x10^3uL (1.8-7.7) Lymphocytes # (Auto) 0.9 x10^3/uL (1.0-4.8) Monocytes # (Auto) 1.5 x10^3/uL (0.0-1.1) Eosinophils # (Auto) 0.0 x10^3/uL (0.0-0.7) Basophils # (Auto) 0.0 x10^3/uL (0.0-0.2) Sodium Level 139 mmol/L (136-145) Potassium Level 3.8 mmol/L (3.5-5.1) Chloride Level 98 mmol/L (98-107) Carbon Dioxide Level 36 mmol/L (21-32) Anion Gap 5 (6-14) Blood Urea Nitrogen 16 mg/dL (8-26) Creatinine 0.7 mg/dL (0.7-1.3) Estimated GFR (Cockcroft-Gault) 115.8 BUN/Creatinine Ratio 23 (6-20) Glucose Level 137 mg/dL (70-99) Calcium Level 8.8 mg/dL (8.5-10.1) Total Bilirubin 0.4 mg/dL (0.2-1.0) Aspartate Amino Transf (AST/SGOT) 64 U/L (15-37) Alanine Aminotransferase (ALT/SGPT) 77 U/L (16-63) Alkaline Phosphatase 69 U/L (46-116) Total Protein 6.8 g/dL (6.4-8.2) Albumin 3.1 g/dL (3.4-5.0) Albumin/Globulin Ratio 0.8 (1.0-1.7) Triglycerides Level 81 mg/dL (0-150) Cholesterol Level 99 mg/dL (0-200) LDL Cholesterol, Calculated 64 mg/dL (0-100) VLDL Cholesterol, Calculated 16 mg/dL (0-40) Non-HDL Cholesterol Calculated 80 mg/dL (0-129) HDL Cholesterol 19 mg/dL (40-60) Cholesterol/HDL Ratio 5.2 Thyroid Stimulating Hormone (TSH) 0.308 uIU/mL (0.358-3.74) Test 11/16/18 07:44 Glucose (Fingerstick) 176 mg/dL (70-99) Meds Current Medications Insulin Human Lispro (HumaLOG) 0-6 UNITS TIDWMEALS SQ Last administered on 11/16at 09:07; Start 11/15/18 at 12:00 Methylprednisolone Sodium Succinate (SOLU-Medrol 40MG VIAL) 40 mg BID92 IV ; Start 11/16/18 at 14:00; Status UNV Assessment Assessment 1. Acute hypoxic respiratory failure. 2. Pneumonia. 3. Acute exacerbation of chronic obstructive pulmonary disease. 4. Hypertension. 5. Allergic rhinitis. PLAN: The patient is strongly advised to stop smoking, started on nicotine patch. Consult Dr. Copeland for Pulmonary evaluation and management. Consult Dr. Jason Martinez for Infectious Disease evaluation and management. The patient has been started on IV Rocephin and Zithromax, IV steroids, bronchodilators and oxygen. For details, please review the orders. Pulmonary hypertension severe -patient continues to remain dyspneic. Condition treatment extensively discussed with the patient and his including situation at his work and the possible need for disability. mild aortic regurgitation Ejection fraction is 65% on echocardiogram. Cardiology consult appreciated. Acute hypoxic respiratory failure- will need the nocturnal oximetry and 6 minute walk before discharge. Discussed with Dr. Sosa. Pneumonia- continue IV Rocephin and Zithromax Chronic smoking- and has been strongly advised to stop smoking. Advised him that he may need Chantix or Wellbutrin. Possible secondary diabetes- blood sugars remain elevated. Add Lantus 6 units subcutaneous daily. Continue sliding scale insulin. Check hemoglobin A1c. Plan Plan For more details regarding further plans, please refer to the orders. EDWARD OATES MD Nov 16, 2018 10:52
[2018-11-16 11:00] VITALS: BP 155/71
[2018-11-16] MEDS: ENOXAPARIN 40 MG/0.4 ML SYRINGE. SQ SCH (12:39)
[2018-11-16] MEDS: INSULIN GLARGINE 300 UNITS/3 ML INSULN.PEN. SQ SCH (12:45)
--- NOTE | 2018-11-16 14:23 | PDOC ---
Infectious Disease Note Subjective Subjective + productive cough and sinus congestion, but says feeling better Energy level improving Denies F/C/S/aches/N/V/D/SOA/CP ROS ROS per HPI otherwise neg Vital Sign Vital Signs Vital Signs Date Time Temp Pulse Resp B/P (MAP) Pulse Ox O2 Delivery O2 Flow Rate FiO2 11/16/18 12:03 Nasal Cannula 4.0 11/16/18 09:06 72 154/78 11/16/18 08:00 92 11/16/18 07:00 98.2 22 98.2 Physical Exam PHYSICAL EXAM GENERAL: Sitting on the side of the bed, alert smiling HEENT: Oral cavity clear NECK: Supple. LUNGS: Diminished aeration HEART: S1 and S2 ABDOMEN: Obese, soft, nontender EXTREMITIES: No edema or cyanosis. SKIN: No rash NEUROLOGICAL: Alert, oriented PIV Labs Lab Laboratory Tests Test 11/15/18 16:53 11/15/18 20:34 11/16/18 04:00 11/16/18 07:44 Glucose (Fingerstick) 167 mg/dL (70-99) 244 mg/dL (70-99) 176 mg/dL (70-99) White Blood Count 22.9 x10^3/uL (4.0-11.0) Red Blood Count 4.40 x10^6/uL (4.30-5.70) Hemoglobin 14.4 g/dL (13.0-17.5) Hematocrit 43.5 % (39.0-53.0) Mean Corpuscular Volume 99 fL (79-100) Mean Corpuscular Hemoglobin 33 pg (25-35) Mean Corpuscular Hemoglobin Concent 33 g/dL (31-37) Red Cell Distribution Width 13.7 % (11.5-14.5) Platelet Count 222 x10^3/uL (140-400) Neutrophils (%) (Auto) 90 % (31-73) Lymphocytes (%) (Auto) 4 % (24-48) Monocytes (%) (Auto) 6 % (0-9) Eosinophils (%) (Auto) 0 % (0-3) Basophils (%) (Auto) 0 % (0-3) Neutrophils # (Auto) 20.5 x10^3uL (1.8-7.7) Lymphocytes # (Auto) 0.9 x10^3/uL (1.0-4.8) Monocytes # (Auto) 1.5 x10^3/uL (0.0-1.1) Eosinophils # (Auto) 0.0 x10^3/uL (0.0-0.7) Basophils # (Auto) 0.0 x10^3/uL (0.0-0.2) Sodium Level 139 mmol/L (136-145) Potassium Level 3.8 mmol/L (3.5-5.1) Chloride Level 98 mmol/L (98-107) Carbon Dioxide Level 36 mmol/L (21-32) Anion Gap 5 (6-14) Blood Urea Nitrogen 16 mg/dL (8-26) Creatinine 0.7 mg/dL (0.7-1.3) Estimated GFR (Cockcroft-Gault) 115.8 BUN/Creatinine Ratio 23 (6-20) Glucose Level 137 mg/dL (70-99) Calcium Level 8.8 mg/dL (8.5-10.1) Total Bilirubin 0.4 mg/dL (0.2-1.0) Aspartate Amino Transf (AST/SGOT) 64 U/L (15-37) Alanine Aminotransferase (ALT/SGPT) 77 U/L (16-63) Alkaline Phosphatase 69 U/L (46-116) Total Protein 6.8 g/dL (6.4-8.2) Albumin 3.1 g/dL (3.4-5.0) Albumin/Globulin Ratio 0.8 (1.0-1.7) Triglycerides Level 81 mg/dL (0-150) Cholesterol Level 99 mg/dL (0-200) LDL Cholesterol, Calculated 64 mg/dL (0-100) VLDL Cholesterol, Calculated 16 mg/dL (0-40) Non-HDL Cholesterol Calculated 80 mg/dL (0-129) HDL Cholesterol 19 mg/dL (40-60) Cholesterol/HDL Ratio 5.2 Thyroid Stimulating Hormone (TSH) 0.308 uIU/mL (0.358-3.74) Test 11/16/18 11:57 Glucose (Fingerstick) 184 mg/dL (70-99) Micro Microbiology 11/13/18 Blood Culture - Preliminary, Resulted NO GROWTH AFTER 2 DAYS Objective Assessment Fever, better Leukocytosis, now on steroids Community acquired pneumonia COPD HTN Obesity Smoking Plan Plan of Care Rocephin and azithromycin adv to quit smoking adv to lose wt Patient seen and examined. Chart reviewed in detail. 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 Agree with above plan. ADY GUZMAN SKINNING MACHINE FEEDER Nov 16, 2018 14:22 ALONSO ORANTES MD Nov 16, 2018 20:29
[2018-11-16 15:00] VITALS: BP 145/70
[2018-11-16] MEDS: cefTRIAXone IV Push 1 GM VIAL. IVP SCH (17:28)
[2018-11-16 19:16] VITALS: BP 147/74
[2018-11-16] MEDS: MONTELUKAST SODIUM 10 MG TABLET. PO SCH (21:19)
[2018-11-16 22:10] VITALS: BP 138/72
[2018-11-17 02:42] VITALS: BP 141/73
[2018-11-17 04:26] LABS: CALCIUM 8.5 mg/dL (8.5-10.1); CREATININE 0.8 mg/dL (0.7-1.3); GFR 99.3; POTASSIUM 4.1 mmol/L (3.5-5.1)
[2018-11-17 07:00] VITALS: BP 150/71
[2018-11-17] MEDS: NICOTINE 21MG PATCH. TD SCH (07:59)
[2018-11-17] MEDS: BUDESONIDE 0.5 MG/2 ML NEBU. NEB SCH ×2 (08:00→19:40)
[2018-11-17] MEDS: INSULIN LISPRO 300 UNITS/3 ML INSULN.PEN. SQ SCH ×3 (08:00→17:26)
[2018-11-17] MEDS: methylPREDNISolone SOD SUCC PF 40 MG/ML VIAL. IV SCH (08:02)
[2018-11-17] MEDS: AZITHROMYCIN 250 MG TABLET. PO SCH (08:05)
[2018-11-17] MEDS: POTASSIUM CHLORIDE 20 MEQ TABLET.ER. PO SCH ×3 (08:05→17:14)
[2018-11-17] MEDS: MAGNESIUM OXIDE 400 MG TABLET PO SCH ×3 (08:05→20:30)
[2018-11-17] MEDS: LACTOBACILLUS RHAMNOSUS GG 1 CAPSULE. PO SCH ×2 (08:05→20:30)
[2018-11-17] MEDS: CETIRIZINE HCL 10 MG TABLET. PO SCH (08:05)
[2018-11-17] MEDS: PANTOPRAZOLE 40 MG TABLET.DR. PO SCH (08:06)
[2018-11-17] MEDS: VITAMIN B12,B9,B6 COMPLEX 1 TABLET. PO SCH (08:06)
[2018-11-17] MEDS: amLODIPine BESYLATE 5 MG TABLET PO SCH ×2 (08:06→20:31)
[2018-11-17] MEDS: hydroCHLOROthiazide 25 MG TABLET PO SCH (08:06)
[2018-11-17] MEDS: ATENOLOL 50 MG TABLET. PO SCH ×2 (08:07→20:30)
[2018-11-17] MEDS: MULTIVITAMIN with MINERAL TABLET. PO SCH (08:07)
[2018-11-17] MEDS: LISINOPRIL 20 MG TABLET PO SCH ×2 (08:07→20:30)
--- NOTE | 2018-11-17 09:13 | PDOC ---
PULMONARY PROGRESS NOTES Subjective sob better, has cough, sputum, better, on 02, no pain Vitals Vital Signs Date Time Temp Pulse Resp B/P (MAP) Pulse Ox O2 Delivery O2 Flow Rate FiO2 11/17/18 08:07 70 150/71 11/17/18 08:00 Nasal Cannula 4.0 11/17/18 07:00 98.3 18 96 98.3 ROS: No Nausea, No Chest Pain General: Alert, Oriented X4 HEENT: Other (nc at perrl shallow oropharynx. ) Lungs: Crackles (a few end exp wheezing), Other (a few end exp wheezing) Cardiovascular: S1, S2 Abdomen: Soft, Non-tender Neuro Exam: Alert, Oriented Extremities: Other (+1 edema) Skin: Warm Labs Laboratory Tests Test 11/15/18 11:54 11/15/18 16:53 11/15/18 20:34 11/16/18 04:00 Glucose (Fingerstick) 232 mg/dL (70-99) 167 mg/dL (70-99) 244 mg/dL (70-99) White Blood Count 22.9 x10^3/uL (4.0-11.0) Red Blood Count 4.40 x10^6/uL (4.30-5.70) Hemoglobin 14.4 g/dL (13.0-17.5) Hematocrit 43.5 % (39.0-53.0) Mean Corpuscular Volume 99 fL (79-100) Mean Corpuscular Hemoglobin 33 pg (25-35) Mean Corpuscular Hemoglobin Concent 33 g/dL (31-37) Red Cell Distribution Width 13.7 % (11.5-14.5) Platelet Count 222 x10^3/uL (140-400) Neutrophils (%) (Auto) 90 % (31-73) Lymphocytes (%) (Auto) 4 % (24-48) Monocytes (%) (Auto) 6 % (0-9) Eosinophils (%) (Auto) 0 % (0-3) Basophils (%) (Auto) 0 % (0-3) Neutrophils # (Auto) 20.5 x10^3uL (1.8-7.7) Lymphocytes # (Auto) 0.9 x10^3/uL (1.0-4.8) Monocytes # (Auto) 1.5 x10^3/uL (0.0-1.1) Eosinophils # (Auto) 0.0 x10^3/uL (0.0-0.7) Basophils # (Auto) 0.0 x10^3/uL (0.0-0.2) Sodium Level 139 mmol/L (136-145) Potassium Level 3.8 mmol/L (3.5-5.1) Chloride Level 98 mmol/L (98-107) Carbon Dioxide Level 36 mmol/L (21-32) Anion Gap 5 (6-14) Blood Urea Nitrogen 16 mg/dL (8-26) Creatinine 0.7 mg/dL (0.7-1.3) Estimated GFR (Cockcroft-Gault) 115.8 BUN/Creatinine Ratio 23 (6-20) Glucose Level 137 mg/dL (70-99) Calcium Level 8.8 mg/dL (8.5-10.1) Total Bilirubin 0.4 mg/dL (0.2-1.0) Aspartate Amino Transf (AST/SGOT) 64 U/L (15-37) Alanine Aminotransferase (ALT/SGPT) 77 U/L (16-63) Alkaline Phosphatase 69 U/L (46-116) Total Protein 6.8 g/dL (6.4-8.2) Albumin 3.1 g/dL (3.4-5.0) Albumin/Globulin Ratio 0.8 (1.0-1.7) Triglycerides Level 81 mg/dL (0-150) Cholesterol Level 99 mg/dL (0-200) LDL Cholesterol, Calculated 64 mg/dL (0-100) VLDL Cholesterol, Calculated 16 mg/dL (0-40) Non-HDL Cholesterol Calculated 80 mg/dL (0-129) HDL Cholesterol 19 mg/dL (40-60) Cholesterol/HDL Ratio 5.2 Thyroid Stimulating Hormone (TSH) 0.308 uIU/mL (0.358-3.74) Test 11/16/18 07:44 11/16/18 11:57 11/16/18 17:26 11/16/18 20:22 Glucose (Fingerstick) 176 mg/dL (70-99) 184 mg/dL (70-99) 217 mg/dL (70-99) 227 mg/dL (70-99) Test 11/17/18 03:35 11/17/18 07:41 Sodium Level 138 mmol/L (136-145) Potassium Level 4.1 mmol/L (3.5-5.1) Chloride Level 96 mmol/L (98-107) Carbon Dioxide Level 40 mmol/L (21-32) Anion Gap 2 (6-14) Blood Urea Nitrogen 13 mg/dL (8-26) Creatinine 0.8 mg/dL (0.7-1.3) Estimated GFR (Cockcroft-Gault) 99.3 Glucose Level 143 mg/dL (70-99) Calcium Level 8.5 mg/dL (8.5-10.1) Glucose (Fingerstick) 117 mg/dL (70-99) Laboratory Tests Test 11/16/18 11:57 11/16/18 17:26 11/16/18 20:22 11/17/18 03:35 Glucose (Fingerstick) 184 mg/dL (70-99) 217 mg/dL (70-99) 227 mg/dL (70-99) Sodium Level 138 mmol/L (136-145) Potassium Level 4.1 mmol/L (3.5-5.1) Chloride Level 96 mmol/L (98-107) Carbon Dioxide Level 40 mmol/L (21-32) Anion Gap 2 (6-14) Blood Urea Nitrogen 13 mg/dL (8-26) Creatinine 0.8 mg/dL (0.7-1.3) Estimated GFR (Cockcroft-Gault) 99.3 Glucose Level 143 mg/dL (70-99) Calcium Level 8.5 mg/dL (8.5-10.1) Test 11/17/18 07:41 Glucose (Fingerstick) 117 mg/dL (70-99) Medications Active Scripts Medications Dose Route/Sig Max Daily Dose Days Date Category Folbic Rf Tablet (B12/Levomefolate Calcium/B-6) 1 Each Tablet 1 Each PO DAILY 11/13/18 Reported Multi Vitamin Daily (Multivitamin) 1 Each Tablet 1 Each PO DAILY 11/13/18 Reported Flakita Allergy (Fexofenadine Hcl) 180 Mg Tablet 180 Mg PO DAILY 11/13/18 Reported Proair Respiclick (Albuterol Sulfate) 90 Mcg Aer.pow.ba 90 Mcg INH Q6HRS 11/13/18 Reported Azelastine Hcl 137 Mcg/0.137 Ml [place].pump 137 Mcg INH BID 11/13/18 Reported Klor-Con M20 (Potassium Chloride) 20 Meq Tab.er.prt 20 Mg PO TID 11/13/18 Reported Mag-Oxide (Magnesium Oxide) 400 Mg Tablet 400 Mg PO TID 11/13/18 Reported Breo Ellipta 100-25 Mcg INH (Fluticasone/Vilanterol) 1 Each Blst.w.dev 1 Inh INH DAILY 11/13/18 Reported Atenolol 50 Mg Tablet 50 Mg PO BID 11/13/18 Reported Breo Ellipta 100-25 Mcg INH (Fluticasone/Vilanterol) 1 Each Blst.w.dev 1 Puff INH DAILY 11/13/18 Reported Doxazosin Mesylate 4 Mg Tablet 4 Mg PO QHS 11/13/18 Reported Hydrochlorothiazide 25 Mg Tablet 25 Mg PO DAILY 11/13/18 Reported Montelukast Sodium Tablet (Montelukast Sodium) 10 Mg Tablet 10 Mg PO QHS 11/13/18 Reported Amlodipine-Benazepril 5-20 Mg (Amlodipine Besylate/Benazepril) 1 Each Capsule 5-20 Mg PO BID 11/13/18 Reported Comments The left ventricular systolic function is normal. The Ejection Fraction is 65%. There is normal LV segmental wall motion. The left atrium is mildly dilated. Moderate aortic regurgitation. Trace mitral regurgitation. Mild tricuspid regurgitation. There is severe pulmonary hypertension. The PA pressure was estimated at 79 mmHg. There is no evidence of significant pericardial effusion. Impression . IMPRESSION: 1. Acute respiratory failure secondary to pneumonia, acute exacerbation of chronic obstructive pulmonary disease, acute diastolic congestive heart failure versus others. 2. Abnormal chest x-ray. 3. Pneumonia. 4. Acute exacerbation of chronic obstructive pulmonary disease. 5. Obesity, snoring and excessive daytime sleepiness, probable obstructive sleep apnea-hypopnea syndrome. 6. Hypertension. 7. Tobacco habituation. 8. secondary pulm htn, due to AI, copd, prob akil, diastolic chf vs others Plan . PLAN AND RECOMMENDATIONS: 1. I had a long discussion with him regarding the smoking cessation. I have advised him to stop smoking forever. 2. change solumedrol to prednisone 40 mg daily w taper by 10 mg q 3d 3. on Rocephin, azithromycin stopped. per id 4. echocardiogram reviewed 5. Titrate FiO2 to keep O2 saturation 92%. 6. Bronchodilator. 7. Lovenox for DVT prophylaxis. 8. Protonix for stress ulcer prophylaxis. 9. lose wt 10. 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 I do recommend a sleep study as an outpatient 11. A 6-minute walk at the time of discharge. overnight ox tonight 12. cardiology consulted, 13. has pulm htn, cta of chest, no pe. le doppler, neg 14. pfts as out pt fu w dr maloney or hemanth in a few wks discussed w rn, pt, HERMES Alonso MD Nov 17, 2018 09:13
[2018-11-17] MEDS: IPRATRPIUM/ALBUTEROL 0.5/2.5MG 3 ML NEBU. NEB SCH ×4 (09:23→19:39)
--- NOTE | 2018-11-17 09:57 | PDOC ---
Infectious Disease Note Subjective Subjective Feeling alright this morning + productive cough and sinus congestion Denies F/C/S/aches/N/V/D/SOA/CP ROS ROS per HPI Vital Sign Vital Signs Vital Signs Date Time Temp Pulse Resp B/P (MAP) Pulse Ox O2 Delivery O2 Flow Rate FiO2 11/17/18 09:23 94 Nasal Cannula 3.0 11/17/18 08:07 70 150/71 11/17/18 07:00 98.3 18 98.3 Physical Exam PHYSICAL EXAM GENERAL: Sitting on the side of the bed, alert smiling HEENT: Oral cavity clear NECK: Supple. LUNGS: Diminished aeration HEART: S1 and S2 ABDOMEN: Obese, soft, nontender EXTREMITIES: No edema or cyanosis. SKIN: No rash NEUROLOGICAL: Alert, oriented PIV Labs Lab Laboratory Tests Test 11/16/18 11:57 11/16/18 17:26 11/16/18 20:22 11/17/18 03:35 Glucose (Fingerstick) 184 mg/dL (70-99) 217 mg/dL (70-99) 227 mg/dL (70-99) Sodium Level 138 mmol/L (136-145) Potassium Level 4.1 mmol/L (3.5-5.1) Chloride Level 96 mmol/L (98-107) Carbon Dioxide Level 40 mmol/L (21-32) Anion Gap 2 (6-14) Blood Urea Nitrogen 13 mg/dL (8-26) Creatinine 0.8 mg/dL (0.7-1.3) Estimated GFR (Cockcroft-Gault) 99.3 Glucose Level 143 mg/dL (70-99) Calcium Level 8.5 mg/dL (8.5-10.1) Test 11/17/18 07:41 Glucose (Fingerstick) 117 mg/dL (70-99) Micro Microbiology 11/13/18 Blood Culture - Preliminary, Resulted NO GROWTH AFTER 2 DAYS Objective Assessment Fever, better Leukocytosis, now on steroids Community acquired pneumonia COPD HTN Obesity Smoking Plan Plan of Care Continue Rocephin D/c azithromycin (got 4 doses) adv to quit smoking adv to lose wt Patient seen and examined. Chart reviewed in detail. 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 Agree with above plan. ADY GUZMAN APRN Nov 17, 2018 09:57 ALONSO ORANTES MD Nov 17, 2018 18:51
[2018-11-17] MEDS: ENOXAPARIN 40 MG/0.4 ML SYRINGE. SQ SCH (10:37)
[2018-11-17] MEDS: INSULIN GLARGINE 300 UNITS/3 ML INSULN.PEN. SQ SCH (10:44)
[2018-11-17 11:00] VITALS: BP 154/79
--- NOTE | 2018-11-17 11:36 | PDOC ---
IM PROGRESS NOTES- Subjective Subjective Continues to have some cough and dyspnea. Objective Vitals Vital Signs Date Time Temp Pulse Resp B/P (MAP) Pulse Ox O2 Delivery O2 Flow Rate FiO2 11/17/18 09:23 94 Nasal Cannula 3.0 11/17/18 08:07 70 150/71 11/17/18 07:00 98.3 18 98.3 Input & Output Intake and Output 11/17/18 06:59 Intake Total 3200 ml Output Total 3875 ml Balance -675 ml Intake Oral 3200 ml Output Urine Total 3875 ml # Voids 1 Physical Exam Physical Exam General appearance - alert,ill appearing, and in moderate distress and oriented to person, place, and time Mental Status - alert, oriented to person, place, and time, affect appropriate to mood Head - normal Chest -bilateral wheezing Heart - S1 and S2 normal Abdomen - soft, nontender, nondistended, no masses or organomegaly Neurological - alert and oriented Musculoskeletal - no muscular tenderness noted Extremities - trace pedal edema Skin - warm and dry Labs Laboratory Tests Test 11/15/18 11:54 11/15/18 16:53 11/15/18 20:34 11/16/18 04:00 Glucose (Fingerstick) 232 mg/dL (70-99) 167 mg/dL (70-99) 244 mg/dL (70-99) White Blood Count 22.9 x10^3/uL (4.0-11.0) Red Blood Count 4.40 x10^6/uL (4.30-5.70) Hemoglobin 14.4 g/dL (13.0-17.5) Hematocrit 43.5 % (39.0-53.0) Mean Corpuscular Volume 99 fL (79-100) Mean Corpuscular Hemoglobin 33 pg (25-35) Mean Corpuscular Hemoglobin Concent 33 g/dL (31-37) Red Cell Distribution Width 13.7 % (11.5-14.5) Platelet Count 222 x10^3/uL (140-400) Neutrophils (%) (Auto) 90 % (31-73) Lymphocytes (%) (Auto) 4 % (24-48) Monocytes (%) (Auto) 6 % (0-9) Eosinophils (%) (Auto) 0 % (0-3) Basophils (%) (Auto) 0 % (0-3) Neutrophils # (Auto) 20.5 x10^3uL (1.8-7.7) Lymphocytes # (Auto) 0.9 x10^3/uL (1.0-4.8) Monocytes # (Auto) 1.5 x10^3/uL (0.0-1.1) Eosinophils # (Auto) 0.0 x10^3/uL (0.0-0.7) Basophils # (Auto) 0.0 x10^3/uL (0.0-0.2) Sodium Level 139 mmol/L (136-145) Potassium Level 3.8 mmol/L (3.5-5.1) Chloride Level 98 mmol/L (98-107) Carbon Dioxide Level 36 mmol/L (21-32) Anion Gap 5 (6-14) Blood Urea Nitrogen 16 mg/dL (8-26) Creatinine 0.7 mg/dL (0.7-1.3) Estimated GFR (Cockcroft-Gault) 115.8 BUN/Creatinine Ratio 23 (6-20) Glucose Level 137 mg/dL (70-99) Calcium Level 8.8 mg/dL (8.5-10.1) Total Bilirubin 0.4 mg/dL (0.2-1.0) Aspartate Amino Transf (AST/SGOT) 64 U/L (15-37) Alanine Aminotransferase (ALT/SGPT) 77 U/L (16-63) Alkaline Phosphatase 69 U/L (46-116) Total Protein 6.8 g/dL (6.4-8.2) Albumin 3.1 g/dL (3.4-5.0) Albumin/Globulin Ratio 0.8 (1.0-1.7) Triglycerides Level 81 mg/dL (0-150) Cholesterol Level 99 mg/dL (0-200) LDL Cholesterol, Calculated 64 mg/dL (0-100) VLDL Cholesterol, Calculated 16 mg/dL (0-40) Non-HDL Cholesterol Calculated 80 mg/dL (0-129) HDL Cholesterol 19 mg/dL (40-60) Cholesterol/HDL Ratio 5.2 Thyroid Stimulating Hormone (TSH) 0.308 uIU/mL (0.358-3.74) Test 11/16/18 07:44 11/16/18 11:57 11/16/18 17:26 11/16/18 20:22 Glucose (Fingerstick) 176 mg/dL (70-99) 184 mg/dL (70-99) 217 mg/dL (70-99) 227 mg/dL (70-99) Test 11/17/18 03:35 11/17/18 07:41 Sodium Level 138 mmol/L (136-145) Potassium Level 4.1 mmol/L (3.5-5.1) Chloride Level 96 mmol/L (98-107) Carbon Dioxide Level 40 mmol/L (21-32) Anion Gap 2 (6-14) Blood Urea Nitrogen 13 mg/dL (8-26) Creatinine 0.8 mg/dL (0.7-1.3) Estimated GFR (Cockcroft-Gault) 99.3 Glucose Level 143 mg/dL (70-99) Calcium Level 8.5 mg/dL (8.5-10.1) Glucose (Fingerstick) 117 mg/dL (70-99) Laboratory Tests Test 11/16/18 11:57 11/16/18 17:26 11/16/18 20:22 11/17/18 03:35 Glucose (Fingerstick) 184 mg/dL (70-99) 217 mg/dL (70-99) 227 mg/dL (70-99) Sodium Level 138 mmol/L (136-145) Potassium Level 4.1 mmol/L (3.5-5.1) Chloride Level 96 mmol/L (98-107) Carbon Dioxide Level 40 mmol/L (21-32) Anion Gap 2 (6-14) Blood Urea Nitrogen 13 mg/dL (8-26) Creatinine 0.8 mg/dL (0.7-1.3) Estimated GFR (Cockcroft-Gault) 99.3 Glucose Level 143 mg/dL (70-99) Calcium Level 8.5 mg/dL (8.5-10.1) Test 11/17/18 07:41 Glucose (Fingerstick) 117 mg/dL (70-99) Meds Current Medications Methylprednisolone Sodium Succinate (SOLU-Medrol 40MG VIAL) 40 mg [id number] IV Last administered on 11/17/18at 08:02; Start 11/16/18 at 14:00; Stop 11/17/18 at 09:14; Status DC Prednisone (Prednisone) 40 mg DAILY PO ; Start 11/18/18 at 09:00 Assessment Assessment 1. Acute hypoxic respiratory failure. 2. Pneumonia. 3. Acute exacerbation of chronic obstructive pulmonary disease. 4. Hypertension. 5. Allergic rhinitis. PLAN: The patient is strongly advised to stop smoking, started on nicotine patch. Consult Dr. Copeland for Pulmonary evaluation and management. Consult Dr. Jason Martinez for Infectious Disease evaluation and management. The patient has been started on IV Rocephin and Zithromax, IV steroids, bronchodilators and oxygen. For details, please review the orders. Pulmonary hypertension severe -patient continues to remain dyspneic. Condition treatment extensively discussed with the patient and his including situation at his work and the possible need for disability. mild aortic regurgitation Ejection fraction is 65% on echocardiogram. Cardiology consult appreciated. Acute hypoxic respiratory failure- will need the nocturnal oximetry and 6 minute walk before discharge. Discussed with Dr. Sosa. Pneumonia- continue IV Rocephin and Zithromax Chronic smoking- and has been strongly advised to stop smoking. Advised him that he may need Chantix or Wellbutrin. Possible secondary diabetes- blood sugars remain elevated. Add Lantus 6 units subcutaneous daily. Continue sliding scale insulin. Check hemoglobin A1c. Blood sugars are better controlled. Discharged tomorrow. Exacerbation of COPD- changed to oral steroids. Plan Plan For more details regarding further plans, please refer to the orders. EDWARD OATES MD Nov 17, 2018 11:36
[2018-11-17 15:00] VITALS: BP 160/67
[2018-11-17] MEDS: cefTRIAXone IV Push 1 GM VIAL. IVP SCH (17:16)
[2018-11-17 19:18] VITALS: BP 149/68
[2018-11-17] MEDS: MONTELUKAST SODIUM 10 MG TABLET. PO SCH (20:30)
[2018-11-17 22:41] VITALS: BP 133/53
[2018-11-18 00:09] LABS: HEMOGLOBIN A1C 6.7 % (4.8-5.6)
[2018-11-18 03:52] VITALS: BP 136/91
[2018-11-18 07:00] VITALS: BP 153/77
[2018-11-18] MEDS: IPRATRPIUM/ALBUTEROL 0.5/2.5MG 3 ML NEBU. NEB SCH ×2 (07:51→11:26)
[2018-11-18] MEDS: BUDESONIDE 0.5 MG/2 ML NEBU. NEB SCH (07:51)
[2018-11-18] MEDS: INSULIN LISPRO 300 UNITS/3 ML INSULN.PEN. SQ SCH ×2 (08:00→12:26)
[2018-11-18] MEDS: MAGNESIUM OXIDE 400 MG TABLET PO SCH (08:30)
[2018-11-18] MEDS: CETIRIZINE HCL 10 MG TABLET. PO SCH (08:30)
[2018-11-18] MEDS: VITAMIN B12,B9,B6 COMPLEX 1 TABLET. PO SCH (08:30)
[2018-11-18] MEDS: POTASSIUM CHLORIDE 20 MEQ TABLET.ER. PO SCH ×2 (08:30→11:21)
[2018-11-18] MEDS: PANTOPRAZOLE 40 MG TABLET.DR. PO SCH (08:30)
[2018-11-18] MEDS: MULTIVITAMIN with MINERAL TABLET. PO SCH (08:30)
[2018-11-18] MEDS: hydroCHLOROthiazide 25 MG TABLET PO SCH (08:30)
[2018-11-18] MEDS: LISINOPRIL 20 MG TABLET PO SCH (08:31)
[2018-11-18] MEDS: amLODIPine BESYLATE 5 MG TABLET PO SCH (08:31)
[2018-11-18] MEDS: LACTOBACILLUS RHAMNOSUS GG 1 CAPSULE. PO SCH (08:31)
[2018-11-18] MEDS: ATENOLOL 50 MG TABLET. PO SCH (08:31)
[2018-11-18] MEDS: NICOTINE 21MG PATCH. TD SCH (08:33)
[2018-11-18] MEDS ORDERED: predniSONE 20 MG TABLET PO SCH (09:00)
--- NOTE | 2018-11-18 09:39 | PDOC ---
Infectious Disease Note Subjective: Subjective Feeling better though cont to have sob but slowly improving + productive cough and sinus congestion cont to have wheezing Denies F/C/S/aches/N/V/D/SOA/CP ROS: ROS Negative except for above. Vital Signs: Vital Signs Vital Signs Date Time Temp Pulse Resp B/P (MAP) Pulse Ox O2 Delivery O2 Flow Rate FiO2 11/18/18 08:31 65 153/77 11/18/18 08:14 Nasal Cannula 2.0 11/18/18 07:51 94 11/18/18 07:00 98.3 18 98.3 Physical Exam: PHYSICAL EXAM GENERAL: Sitting on the side of the bed, alert smiling HEENT: Oral cavity clear NECK: Supple. LUNGS: Diminished aeration ,wheezing expiratory HEART: S1 and S2 ABDOMEN: Obese, soft, nontender EXTREMITIES: No edema or cyanosis. SKIN: No rash NEUROLOGICAL: Alert, oriented PIV Medications: Inpatient Meds: Current Medications Medications (Trade) Dose Ordered Sig/Zack Start Time Stop Time Status Last Admin Dose Admin Acetaminophen (Tylenol) 1,000 mg 1X ONCE 11/13/18 13:30 11/13/18 13:31 DC 11/13/18 13:30 1,000 MG Albuterol/ Ipratropium (Duoneb) 3 ml RTQID 11/14/18 12:00 11/18/18 07:51 3 ML Amlodipine Besylate (Norvasc) 5 mg BID 11/15/18 09:00 11/18/18 08:31 5 MG Atenolol (Tenormin) 50 mg BID 11/14/18 21:00 11/18/18 08:31 50 MG Azithromycin (Zithromax) 500 mg DAILY 11/14/18 09:00 11/17/18 09:58 DC 11/17/18 08:05 500 MG Budesonide (Pulmicort) 0.5 mg RTBID 11/14/18 20:00 11/18/18 07:51 0.5 MG Cefdinir (Omnicef) 300 mg BID 11/18/18 21:00 Ceftriaxone Sodium (Rocephin) 1 gm Q24H 11/14/18 16:00 11/18/18 09:34 DC 11/17/18 17:16 1 GM Cetirizine HCl (ZyrTEC) 10 mg DAILY 11/15/18 09:00 11/18/18 08:30 10 MG Dextrose (Dextrose 50%-Water Syringe) 12.5 gm PRN Q15MIN PRN 11/15/18 10:45 Enoxaparin Sodium (Lovenox 40mg Syringe) 40 mg Q24H 11/14/18 11:15 11/17/18 10:37 40 MG Hydrochlorothiazide (Hydrodiuril) 25 mg DAILY 11/15/18 09:00 11/18/18 08:30 25 MG Info (CONTRAST GIVEN -- Rx MONITORING) 1 each PRN DAILY PRN 11/15/18 09:00 11/17/18 08:59 DC Insulin Glargine (Lantus) 6 units DAILY10 11/16/18 11:00 11/17/18 10:44 6 UNITS Insulin Human Lispro (HumaLOG) 0-6 UNITS TIDWMEALS 11/15/18 12:00 11/17/18 17:26 3 UNITS Iohexol (Omnipaque 350 Mg/ml) 100 ml 1X ONCE 11/15/18 09:00 11/15/18 09:01 DC 11/15/18 09:00 100 ML Lactobacillus Rhamnosus (Culturelle) 1 cap BID 11/14/18 21:00 11/18/18 08:31 1 CAP Lisinopril (Prinivil) 20 mg BID 11/14/18 21:00 11/18/18 08:31 20 MG Magnesium Oxide (Magnesium Oxide) 400 mg TID 11/14/18 21:00 11/18/18 08:30 400 MG Magnesium Sulfate 50 ml @ 25 mls/hr 1X ONCE 11/13/18 21:00 11/13/18 22:59 DC 11/13/18 20:59 25 MLS/HR Methylprednisolone Sodium Succinate (SOLU-Medrol 40MG VIAL) 40 mg BID92 11/16/18 14:00 11/17/18 09:14 DC 11/17/18 08:02 40 MG Methylprednisolone Sodium Succinate (SOLU-Medrol 125MG VIAL) 80 mg Q8HRS 11/13/18 22:00 11/15/18 10:36 DC 11/15/18 06:01 80 MG Montelukast Sodium (Singulair) 10 mg QHS 11/14/18 21:00 11/17/18 20:30 10 MG Multivitamins (Thera M Plus) 1 tab DAILY 11/15/18 09:00 11/18/18 08:30 1 TAB Nicotine (Nicoderm Cq 21mg) 1 patch 1X ONCE 11/13/18 21:00 11/13/18 21:01 DC 11/13/18 21:06 1 PATCH Non-Formulary Medication (Fluticasone/ Vilanterol (Breo Ellipta 100-25 Mcg INH)) 1 inh DAILY 11/15/18 09:00 UNV Pantoprazole Sodium (Protonix) 40 mg DAILYAC 11/14/18 11:00 11/18/18 08:30 40 MG Potassium Chloride (Klor-Con) 20 meq TIDWMEALS 11/14/18 17:00 11/18/18 08:30 20 MEQ Prednisone (Prednisone) 40 mg DAILY 11/18/18 09:00 11/18/18 08:36 40 MG Sodium Chloride 1,000 ml @ 150 mls/hr Q6H40M 11/13/18 15:15 11/14/18 11:04 DC 11/14/18 04:00 150 MLS/HR Vancomycin HCl 1.25 gm/Sodium Chloride 250 ml @ 166.667 mls/hr 1X ONCE 11/13/18 14:15 11/13/18 15:44 UNV Vancomycin HCl 2 gm/Sodium Chloride 500 ml @ 250 mls/hr 1X ONCE 11/13/18 14:30 11/13/18 16:29 DC 11/13/18 15:26 250 MLS/HR Vitamin B Complex (Folbic Tablet) 1 tab DAILY 11/15/18 09:00 11/18/18 08:30 1 TAB Labs: Lab Laboratory Tests Test 11/17/18 11:59 11/17/18 17:19 11/17/18 20:34 11/18/18 07:40 Glucose (Fingerstick) 175 mg/dL (70-99) 188 mg/dL (70-99) 204 mg/dL (70-99) 104 mg/dL (70-99) Objective: Assessment: Fever, better Leukocytosis, now on steroids Community acquired pneumonia COPD HTN Obesity Smoking Plan: Plan of Care Continue Rocephin completed azithromycin (got 4 doses) adv to quit smoking adv to lose wt AB MANCILLA MD Nov 18, 2018 09:39
[2018-11-18] MEDS: INSULIN GLARGINE 300 UNITS/3 ML INSULN.PEN. SQ SCH (10:11)
[2018-11-18] MEDS ORDERED: CEFD300C PO (10:11)
[2018-11-18] MEDS ORDERED: GLIP5TAB10 PO (10:11)
[2018-11-18] MEDS ORDERED: LISI-130 PO (10:11)
[2018-11-18] MEDS ORDERED: Nicotine 21MG TD (10:11)
[2018-11-18] MEDS ORDERED: PRED20TA PO (10:11)
--- NOTE | 2018-11-18 10:15 | DISCH ---
DISCHARGE INSTRUCTIONS Condition on Discharge Condition on Discharge: Stable Activity After Discharge Activity Instructions for Disc: Activity as tolerated Weight Bearing Status after Di: No restrictions Diet after Discharge Diet after Discharge: Cardiac, Diabetic No Calorie Level Community/Resources/Services Services at Discharge: Oxygen Therapy (oxygen by nasal cannula 2 L/m) Contacting the DRNabeel after DC Call your doctor for: Concerns you may have Follow-Up Follow up with: Dr. EDWARD Acosta in 3 days on Follow Up With: EDWARD Aguilar MD Nov 18, 2018 10:15
--- NOTE | 2018-11-18 10:27 | PDOC3 ---
IM DISCHARGE SUMMARY Date of Admission Date of Admission Date of Admission: Nov 13, 2018 at 13:36 Date of Discharge Date of Discharge November 18, 2018 Primary Diagnosis Primary Diagnosis 1. Acute hypoxic respiratory failure. 2. Pneumonia. 3. Acute exacerbation of chronic obstructive pulmonary disease. 4. Hypertension. 5. Allergic rhinitis. 6. Severe pulmonary hypertension 7. Hypokalemia 8. Hypomagnesemia 9. Smoking dependence 10. Diabetes mellitus Consults Consults Jason Martinez MD, Dr. Pitt, Dr. Sosa Labs Labs Laboratory Tests Test 11/15/18 11:54 11/15/18 16:53 11/15/18 20:34 11/16/18 04:00 Glucose (Fingerstick) 232 mg/dL (70-99) 167 mg/dL (70-99) 244 mg/dL (70-99) White Blood Count 22.9 x10^3/uL (4.0-11.0) Red Blood Count 4.40 x10^6/uL (4.30-5.70) Hemoglobin 14.4 g/dL (13.0-17.5) Hematocrit 43.5 % (39.0-53.0) Mean Corpuscular Volume 99 fL (79-100) Mean Corpuscular Hemoglobin 33 pg (25-35) Mean Corpuscular Hemoglobin Concent 33 g/dL (31-37) Red Cell Distribution Width 13.7 % (11.5-14.5) Platelet Count 222 x10^3/uL (140-400) Neutrophils (%) (Auto) 90 % (31-73) Lymphocytes (%) (Auto) 4 % (24-48) Monocytes (%) (Auto) 6 % (0-9) Eosinophils (%) (Auto) 0 % (0-3) Basophils (%) (Auto) 0 % (0-3) Neutrophils # (Auto) 20.5 x10^3uL (1.8-7.7) Lymphocytes # (Auto) 0.9 x10^3/uL (1.0-4.8) Monocytes # (Auto) 1.5 x10^3/uL (0.0-1.1) Eosinophils # (Auto) 0.0 x10^3/uL (0.0-0.7) Basophils # (Auto) 0.0 x10^3/uL (0.0-0.2) Sodium Level 139 mmol/L (136-145) Potassium Level 3.8 mmol/L (3.5-5.1) Chloride Level 98 mmol/L (98-107) Carbon Dioxide Level 36 mmol/L (21-32) Anion Gap 5 (6-14) Blood Urea Nitrogen 16 mg/dL (8-26) Creatinine 0.7 mg/dL (0.7-1.3) Estimated GFR (Cockcroft-Gault) 115.8 BUN/Creatinine Ratio 23 (6-20) Glucose Level 137 mg/dL (70-99) Calcium Level 8.8 mg/dL (8.5-10.1) Total Bilirubin 0.4 mg/dL (0.2-1.0) Aspartate Amino Transf (AST/SGOT) 64 U/L (15-37) Alanine Aminotransferase (ALT/SGPT) 77 U/L (16-63) Alkaline Phosphatase 69 U/L (46-116) Total Protein 6.8 g/dL (6.4-8.2) Albumin 3.1 g/dL (3.4-5.0) Albumin/Globulin Ratio 0.8 (1.0-1.7) Triglycerides Level 81 mg/dL (0-150) Cholesterol Level 99 mg/dL (0-200) LDL Cholesterol, Calculated 64 mg/dL (0-100) VLDL Cholesterol, Calculated 16 mg/dL (0-40) Non-HDL Cholesterol Calculated 80 mg/dL (0-129) HDL Cholesterol 19 mg/dL (40-60) Cholesterol/HDL Ratio 5.2 Thyroid Stimulating Hormone (TSH) 0.308 uIU/mL (0.358-3.74) Test 11/16/18 07:44 11/16/18 11:57 11/16/18 17:26 11/16/18 20:22 Glucose (Fingerstick) 176 mg/dL (70-99) 184 mg/dL (70-99) 217 mg/dL (70-99) 227 mg/dL (70-99) Test 11/17/18 03:35 11/17/18 07:41 11/17/18 11:59 11/17/18 17:19 Sodium Level 138 mmol/L (136-145) Potassium Level 4.1 mmol/L (3.5-5.1) Chloride Level 96 mmol/L (98-107) Carbon Dioxide Level 40 mmol/L (21-32) Anion Gap 2 (6-14) Blood Urea Nitrogen 13 mg/dL (8-26) Creatinine 0.8 mg/dL (0.7-1.3) Estimated GFR (Cockcroft-Gault) 99.3 Glucose Level 143 mg/dL (70-99) Hemoglobin A1c 6.7 % (4.8-5.6) Calcium Level 8.5 mg/dL (8.5-10.1) Glucose (Fingerstick) 117 mg/dL (70-99) 175 mg/dL (70-99) 188 mg/dL (70-99) Test 11/17/18 20:34 11/18/18 07:40 Glucose (Fingerstick) 204 mg/dL (70-99) 104 mg/dL (70-99) Brief hospital course Brief hospital course This 57-year-old male who has a history of COPD and chronic smoking, started having chills, fatigue, fever, productive cough and purulent sputum and wheezing for the last 3 days. In the office, the patient was noted to have temperature of 102.5 degree Fahrenheit. O2 sats were 67% on room air and then increased to 79% on recheck. The patient was then sent to the Emergency Room, was noted to have left-sided pneumonia with acute respiratory failure and was admitted for further evaluation and management. For more details regarding the past history, family history, social history, surgical history and other details, please refer to History and Physical. The patient is strongly advised to stop smoking, started on nicotine patch. Consult Dr. Copeland for Pulmonary evaluation and management. Consult Dr. Jason Martinez for Infectious Disease evaluation and management. The patient has been started on IV Rocephin and Zithromax, IV steroids, bronchodilators and oxygen. Pulmonary hypertension severe -patient continues to remain dyspneic. Condition treatment extensively discussed with the patient and his including situation at his work and the possible need for disability. Follow-up with Dr. Christian as outpatient. mild aortic regurgitation Ejection fraction is 65% on echocardiogram. Cardiology consult appreciated. Acute hypoxic respiratory failure- will need the nocturnal oximetry and 6 minute walk before discharge. Discussed with Dr. Sosa. Pneumonia-completed IV Rocephin and Zithromax. He'll be discharged on cefdinir 300 mg twice a day for 5 days. Chronic smoking- and has been strongly advised to stop smoking. Advised him that he may need Chantix or Wellbutrin. Possible secondary diabetes- blood sugars remain elevated. Add Lantus 6 units subcutaneous daily. Continue sliding scale insulin. Check hemoglobin A1c. Blood sugars are better controlled.Hb A1C is 6.7. I'll start him on glipizide 5 mg daily in a.m. ADA cardiac diet. He is not a candidate for metformin therapy. Will discontinue insulin on discharge. When he comes to the office will order a glucose monitor for home use. Discharged tomorrow. Exacerbation of COPD- changed to oral steroids. Clinically patient is improving. He is currently on oxygen by nasal cannula 2 L/m. He had nocturnal oximetry and he will have a 6 minute walk this morning based on that he will be discharged on oxygen by nasal cannula which is currently at 2 L/m. He will see me in the office in 4 days on . I strongly advised him to stop smoking and continue nicotine patch 21 mg per day topically once a day as outpatient. Medications Medications reviewed and reconciled for discharge. Allergy Allergies Coded Allergies Type Severity Reaction Last Updated Verified Penicillins Allergy Intermediate HIVES 11/13/18 Yes Follow up in 5 days. DISPOSITION: Home Comments Discharge Management - 40minutes. For other details please refer to discharge instructions EDWARD OATES MD Nov 18, 2018 10:27
[2018-11-18 11:00] VITALS: BP 149/75
[2018-11-18] MEDS: ENOXAPARIN 40 MG/0.4 ML SYRINGE. SQ SCH (11:19)
--- NOTE | 2018-11-18 11:32 | PDOC ---
PULMONARY PROGRESS NOTES Subjective sob better, has cough, sputum, better, on 02, no pain Vitals Vital Signs Date Time Temp Pulse Resp B/P (MAP) Pulse Ox O2 Delivery O2 Flow Rate FiO2 11/18/18 08:31 65 153/77 11/18/18 08:14 Nasal Cannula 2.0 11/18/18 07:51 94 11/18/18 07:00 98.3 18 98.3 ROS: No Nausea, No Chest Pain General: Alert, Oriented X4 HEENT: Other (nc at perrl shallow oropharynx. ) Lungs: Clear Cardiovascular: S1, S2 Abdomen: Soft, Non-tender Neuro Exam: Alert, Oriented Extremities: Other (+1 edema) Skin: Warm Labs Laboratory Tests Test 11/16/18 11:57 11/16/18 17:26 11/16/18 20:22 11/17/18 03:35 Glucose (Fingerstick) 184 mg/dL (70-99) 217 mg/dL (70-99) 227 mg/dL (70-99) Sodium Level 138 mmol/L (136-145) Potassium Level 4.1 mmol/L (3.5-5.1) Chloride Level 96 mmol/L (98-107) Carbon Dioxide Level 40 mmol/L (21-32) Anion Gap 2 (6-14) Blood Urea Nitrogen 13 mg/dL (8-26) Creatinine 0.8 mg/dL (0.7-1.3) Estimated GFR (Cockcroft-Gault) 99.3 Glucose Level 143 mg/dL (70-99) Hemoglobin A1c 6.7 % (4.8-5.6) Calcium Level 8.5 mg/dL (8.5-10.1) Test 11/17/18 07:41 11/17/18 11:59 11/17/18 17:19 11/17/18 20:34 Glucose (Fingerstick) 117 mg/dL (70-99) 175 mg/dL (70-99) 188 mg/dL (70-99) 204 mg/dL (70-99) Test 11/18/18 07:40 Glucose (Fingerstick) 104 mg/dL (70-99) Laboratory Tests Test 11/17/18 11:59 11/17/18 17:19 11/17/18 20:34 11/18/18 07:40 Glucose (Fingerstick) 175 mg/dL (70-99) 188 mg/dL (70-99) 204 mg/dL (70-99) 104 mg/dL (70-99) Medications Active Scripts Medications Dose Route/Sig Max Daily Dose Days Date Category Folbic Rf Tablet (B12/Levomefolate Calcium/B-6) 1 Each Tablet 1 Each PO DAILY 11/13/18 Reported Multi Vitamin Daily (Multivitamin) 1 Each Tablet 1 Each PO DAILY 11/13/18 Reported Flakita Allergy (Fexofenadine Hcl) 180 Mg Tablet 180 Mg PO DAILY 11/13/18 Reported Proair Respiclick (Albuterol Sulfate) 90 Mcg Aer.pow.ba 90 Mcg INH Q6HRS 11/13/18 Reported Azelastine Hcl 137 Mcg/0.137 Ml [place].pump 137 Mcg INH BID 11/13/18 Reported Klor-Con M20 (Potassium Chloride) 20 Meq Tab.er.prt 20 Mg PO TID 11/13/18 Reported Mag-Oxide (Magnesium Oxide) 400 Mg Tablet 400 Mg PO TID 11/13/18 Reported Breo Ellipta 100-25 Mcg INH (Fluticasone/Vilanterol) 1 Each Blst.w.dev 1 Inh INH DAILY 11/13/18 Reported Atenolol 50 Mg Tablet 50 Mg PO BID 11/13/18 Reported Breo Ellipta 100-25 Mcg INH (Fluticasone/Vilanterol) 1 Each Blst.w.dev 1 Puff INH DAILY 11/13/18 Reported Doxazosin Mesylate 4 Mg Tablet 4 Mg PO QHS 11/13/18 Reported Hydrochlorothiazide 25 Mg Tablet 25 Mg PO DAILY 11/13/18 Reported Montelukast Sodium Tablet (Montelukast Sodium) 10 Mg Tablet 10 Mg PO QHS 11/13/18 Reported Amlodipine-Benazepril 5-20 Mg (Amlodipine Besylate/Benazepril) 1 Each Capsule 5-20 Mg PO BID 11/13/18 Reported Comments The left ventricular systolic function is normal. The Ejection Fraction is 65%. There is normal LV segmental wall motion. The left atrium is mildly dilated. Moderate aortic regurgitation. Trace mitral regurgitation. Mild tricuspid regurgitation. There is severe pulmonary hypertension. The PA pressure was estimated at 79 mmHg. There is no evidence of significant pericardial effusion. CT CHEST No central pulmonary arterial thromboembolic disease. Evaluation beyond second-order branches is limited due to respiratory motion. Linear atelectasis involving the lingula and right middle lobe. Enlarged lymph node of the superior mediastinum. Interval follow-up or other evaluation is recommended as neoplastic or reactive process may account for this finding. Small bilateral pleural effusions. Impression . 1. Acute respiratory failure secondary to pneumonia, acute exacerbation of chronic obstructive pulmonary disease, acute diastolic congestive heart failure versus others. 2. Abnormal CT CHEST, MILD REACTIVE MEDIASTINAL ADENOPATHY 3. Pneumonia. 4. Acute exacerbation of chronic obstructive pulmonary disease. 5. Obesity, snoring and excessive daytime sleepiness, probable obstructive sleep apnea-hypopnea syndrome. 6. Hypertension. 7. Tobacco habituation. 8. secondary pulm htn, due to AI, copd, prob akil, diastolic chf vs others Plan . 1.regarding the smoking cessation, HE PLANS TO QUIT 2. prednisone 40 mg daily w taper by 10 mg q 3d 3. on Rocephin, azithromycin stopped. per id 4. echocardiogram reviewed 5. Titrate FiO2 to keep O2 saturation 92%. 6. Bronchodilator. 7. Lovenox for DVT prophylaxis. 8. Protonix for stress ulcer prophylaxis. 9. lose wt 10. I have discussed obstructive sleep apnea-hypopnea syndrome, the importance of diagnosis and treatment, if untreated increased cardiovascular and AC/DC REWINDER morbidity or mortality. I do recommend a sleep study as an outpatient 11. A 6-minute walk at the time of discharge. overnight ox tonight 12. cardiology consulted, 13. has pulm htn, cta of chest, no pe. le doppler, neg 14. pfts as out pt D/W PT /RN. F/U CT CHEST WITH DR OATES IN FEW MONTHS REGARDING ADENOPATHY/ I SUSPECT LIKELY REACTIVE LINA ULLOA MD Nov 18, 2018 11:32
--- NOTE | 2018-11-18 13:37 | NUR ---
SS following up with discharge planning. SS received order for oxygen. SS phoned and faxed order and referral to [facility], ; fax [phone]. SS provided pt's RN with oxygen tank for home. [facility] contacted and stated all records have been received. Discharge order on the chart.
[2018-11-18] MEDS ORDERED: POTA20TA82 PO (13:41)
--- NOTE | 2018-11-18 13:52 | RESP ---
DATE OF SERVICE: 11/17/2018 NOCTURNAL OXIMETRY The study was performed on room air initially and then the patient was placed on 1 liter of oxygen. Towards the end, the patient was placed on 28% FiO2. The patient's mean oxygen saturation remained around 90% with lowest of 75%. A 27% time, which were 2 hours and 6 minutes were spent in oxygen saturation of less than 90%. IMPRESSION: 1. Moderate nocturnal hypoxia, consider underlying sleep apnea/chronic obstructive pulmonary disease versus cardiac etiologies. 2. The patient's hypoxia corrects with 2 liters of oxygen at night. 3. Consider polysomnogram if clinical suspicion for sleep apnea is high. LINA ULLOA MD DR: ORIANA/laz JOB#: [id number] / [id number]
[2018-11-18] MEDS ORDERED: CEFDINIR 300 MG CAPSULE PO SCH (21:00)
[2018-11-19] MEDS ORDERED: glipiZIDE 5 MG TABLET PO SCH (11:30)
== END 2018-11-18 14:06 | disposition home or self-care (01) | DRG 193 ==
LOC: ER 13:06 → 6 SOUTH 13:36 → 2 SOUTH 16:54
PROVIDERS: ADMIT Internal Medicine; ATTEND Internal Medicine
DX: J18.9 Pneumonia, unspecified organism (principal); I50.31 Acute diastolic (congestive) heart failure; J96.01 Acute respiratory failure with hypoxia; E87.1 Hypo-osmolality and hyponatremia; J44.0 Chronic obstructive pulmonary disease with (acute) lower respiratory infection; J44.1 Chronic obstructive pulmonary disease with (acute) exacerbation; I11.0 Hypertensive heart disease with heart failure; E66.9 Obesity, unspecified; E83.42 Hypomagnesemia; E87.6 Hypokalemia; E87.8 Other disorders of electrolyte and fluid balance, not elsewhere classified; F17.210 Nicotine dependence, cigarettes, uncomplicated; G47.33 Obstructive sleep apnea (adult) (pediatric); M19.90 Unspecified osteoarthritis, unspecified site; I27.20 Pulmonary hypertension, unspecified; I49.3 Ventricular premature depolarization; J30.9 Allergic rhinitis, unspecified; K21.9 Gastro-esophageal reflux disease without esophagitis; Z79.4 Long term (current) use of insulin; Z79.899 Other long term (current) drug therapy; Z82.49 Family history of ischemic heart disease and other diseases of the circulatory system; Z87.81 Personal history of (healed) traumatic fracture; Z68.35 Body mass index [BMI] 35.0-35.9, adult; Z88.0 Allergy status to penicillin
CPT/HCPCS: 36415; 36600; 71045; 71275; 80048; 80053; 80061; 82550; 82805; 82962; 83036; 83605; 83735; 83880; 84443; 84484; 85007; 85025; 87040; 87804; 93005; 93306; 93970; 94618; 94640; 94760; 94799; 96361; 96365; 96375; 99406; J0696; J1650; J1815; J2920; J2930; J3370; J3475; J7030; J7040; J7512; J7620; J7626; Q0144; Q9967; 99291-25

== ENCOUNTER → 2019-01-15 | Outpatient (CLI) | payer BC ==
[~2019-01-15] MED LIST: AMLO1CAP10 PO; ATEN50TA PO; AZEL137S3 INH; B12/1TAB3 PO; CEFD300C PO; DOXA4TAB3 PO; FEXO180T81 PO; FLUT1AER2 INH; GLIP5TAB10 PO; HYDR25TA10 PO; LISI-130 PO; MAGN400T22 PO; MONT10TA49 PO; MULT-245 PO; Nicotine 21MG TD; POTA20TA4 PO; POTA20TA82 PO; PRED20TA PO; PROAIR RESPICL90 MCG INH
--- NOTE | 2019-01-17 09:07 | SLEEP ---
DATE OF STUDY: 01/15/2019 OBJECTIVE: The patient is a 58-year-old male with insomnia, snoring, fatigue, observed apnea, excessive somnolence. Height 5 feet 8 inches, weight 225 pounds, body mass index 34. [place] sleep score 12. INTERPRETATION: The patient's sleep architecture is characterized by a low sleep efficiency of 56% across the 6.9 hours of recording time. There is increased amount of REM sleep with REM rebound later in the study, stage volumes are otherwise normal. Sleep onset latency is 38.5 minutes. Respiratory monitoring shows a total of 178 events, nearly all obstructive in nature for an apnea-hypopnea index of 46.3 events per hour of sleep. The minimum oxygen saturation is 74%. Treatment is started and at a setting of 13 cm of CPAP, the apnea-hypopnea index is 0.7 events per hour. No significant periodic limb movements of sleep are seen. No cardiac arrhythmias are observed. IMPRESSION: Abnormal polysomnogram showing obstructive sleep apnea and hypopnea, which can be treated on 13 cm of CPAP using a Respironics DreamWear nasal pillows, small size. RECOMMENDATIONS: 1. The patient should be established on the above setting for CPAP. 2. He should pursue weight loss and avoid sedatives and alcohol. Thank you for letting us help with the patient's care. DOMENICA FUNES MD DR: ADELAIDE/laz JOB#: [id number] / [id number] LINA Coto MD, PRATIP MD
== END | disposition home or self-care (01) ==
LOC: SLPLAB 18:54
PROVIDERS: ATTEND Internal Medicine Critical Care Medicine
DX: G47.33 Obstructive sleep apnea (adult) (pediatric) (principal)
CPT/HCPCS: 95810

== ENCOUNTER → 2019-07-07 | Outpatient (CLI) | payer BC ==
[~2019-07-07] MED LIST changes: -AMLO1CAP10 PO; +AMLO1CAP11 PO; -POTA20TA82 PO
--- NOTE | 2019-07-07 08:52 | RAD ---
CT study chest without contrast Clinical indications: Enlarged mediastinal lymph nodes. Mediastinal lymph node follow-up. Lung nodule followup. COMPARISON: November 15, [address] TECHNIQUE: Noncontrast helical CT scanning of the chest was performed. Without contrast, the sensitivity to detect organ pathology is decreased. PQRS compliance Statement One or more of the following individualized dose reduction techniques were utilized for this study: 1. Automated exposure control 2. Adjustment of the mA and/or kV according to patient size 3. Use of iterative reconstruction technique FINDINGS: Mediastinal lymph nodes seen previously have decreased in size. The previously seen superior mediastinal lymph node just anterior to the aortic arch now measures 12 mm. It measured 20 mm previously. Therefore, these lymph nodes may have been reactive in nature. Axillary lymph nodes bilaterally are stable. No new or enlarging thoracic lymphadenopathy is evident. Evaluation for hilar lymphadenopathy is difficult without IV contrast however. Heart size is normal and no pericardial effusion is seen. No adrenal mass is evident. Diffuse fatty infiltration of the liver is seen. No focal aneurysmal dilatation of the thoracic aorta is seen. Heart size is normal and no pericardial effusion is seen. Again seen is a peripheral nodule of the lateral aspect of the left lower lobe which measures 5 mm and is unchanged. On image 30 and series 2, there is a small 2 mm lung nodule adjacent to the major fissure of the anterior aspect of the superior segment of the left lower lobe. This is unchanged. On image 21 and series 3, there is a 5 mm lung nodule in the lateral aspect of the right lower lobe which is stable. No new lung nodules are evident. The previously seen bilateral lung infiltrates have resolved. No pleural effusion or pneumothorax is seen. The proximal bronchial tree is patent. Old healed right eighth rib fracture is seen. No lytic process is evident. IMPRESSION: Resolution of previously seen bilateral lung infiltrates. Previously seen mediastinal lymph nodes have decreased in size consistent with reactive lymphadenopathy. Stable bilateral lung nodules. Recommend a follow-up chest CT in 12-18 months as per Fleischner guidelines. Electronically signed by: Kg Piper MD (07/07/2019 8:49 AM) [facility]
== END | disposition home or self-care (01) ==
LOC: CT 08:28
PROVIDERS: ATTEND Internal Medicine Critical Care Medicine
DX: R91.8 Other nonspecific abnormal finding of lung field (principal)
CPT/HCPCS: 71250

== ENCOUNTER → 2020-02-24 | Outpatient (CLI) | payer BC, OTHER ==
--- NOTE | 2020-02-24 11:16 | RAD ---
EXAM: Lumbar spine, 3 views. HISTORY: Chronic pain. COMPARISON: None. FINDINGS: 3 views of the lumbar spine are obtained. There is grade 1 anterolisthesis of L4 on L5. There is degenerative endplate remodeling with disc space narrowing and osteophytosis at L5-S1. There is additional endplate remodeling at the remainder of the lumbar levels. There is facet arthropathy predominantly the lower lumbar levels. IMPRESSION: 1. Multilevel degenerative change, primarily at L5-S1. 2. Grade 1 anterolisthesis of L4 on L5. Electronically signed by: Mariya Rivera MD (02/24/2020 11:13 AM) [id number]
== END | disposition home or self-care (01) ==
LOC: RAD 09:27
PROVIDERS: ATTEND Family Medicine
DX: M47.817 Spondylosis without myelopathy or radiculopathy, lumbosacral region (principal); M43.16 Spondylolisthesis, lumbar region; G89.29 Other chronic pain
CPT/HCPCS: 72100